=== PATIENT | female | born 1950 | race Caucasian/White ===

== ENCOUNTER → 2016-09-06 | Outpatient (CLI) | payer BC ==
[2016-09-06 11:23] LABS: INR 3.6 (<1.1); Prothrombin Time 34.7 sec (9.0-12.0)
== END | disposition home or self-care (01) ==
LOC: LABWHC1 10:36
PROVIDERS: ATTEND Family Medicine
DX: Z51.81 Encounter for therapeutic drug level monitoring (principal); Z79.01 Long term (current) use of anticoagulants
CPT/HCPCS: 36415; 85610

== ENCOUNTER → 2017-05-07 | Outpatient (CLI) | payer BC ==
[2017-05-07 14:20] LABS: INR 2.7 (<1.2); Prothrombin Time 25.6 sec (9.0-12.0)
== END | disposition home or self-care (01) ==
LOC: LABWHC1 13:36
PROVIDERS: ATTEND Family Medicine
DX: Z51.81 Encounter for therapeutic drug level monitoring (principal); Z79.01 Long term (current) use of anticoagulants
CPT/HCPCS: 36415; 85610

== ENCOUNTER → 2017-11-05 | Outpatient (CLI) | payer MEDICARE ==
--- NOTE | 2017-11-05 10:50 | US ---
EXAMINATION TYPE: US gallbladder DATE OF EXAM: 11/05/2017 COMPARISON: NONE CLINICAL HISTORY: 67-year-old female K80.20 Gallstones. Patient states history of gallstone. TECHNIQUE: Multiple sonographic images of the right upper quadrant are obtained. FINDINGS: Biochemistry Technologist notes: Limited visualization/exam due to patient body habitus EXAM MEASUREMENTS: Liver Length: 22.5 cm Gallbladder Wall: 0.3 cm CHD: 0.5 cm Right Kidney: 9.5 x 4.0 x 5.1 cm Pancreas: Obscured by bowel gas Liver: Enlarged. Echogenic and markedly attenuating. This secondarily limits assessment for focal le eduardo. Gallbladder: Large mobile, shadowing, 3.4 cm calculus. No abnormal gallbladder distention, wall thic kening, or pericholecystic fluid. Evidence for sonographic Perez's sign: neg CBD: Obscured by overlying bowel gas CHD: wnl Right Kidney: Limited visualization due to patient body habitus. No obvious hydronephrosis. IMPRESSION: 1. Hepatomegaly (22.5 cm) with marked hepatic steatosis. 2. A mobile 3.4 cm gallstone.
== END | disposition home or self-care (01) ==
LOC: RADUSWWP 09:40
PROVIDERS: ATTEND Surgery Plastic and Reconstructive Surgery
DX: K80.20 Calculus of gallbladder without cholecystitis without obstruction (principal); K57.30 Diverticulosis of large intestine without perforation or abscess without bleeding; K76.0 Fatty (change of) liver, not elsewhere classified; R16.0 Hepatomegaly, not elsewhere classified
CPT/HCPCS: 76705

== ENCOUNTER → 2017-11-07 | Outpatient (CLI) | payer MEDICARE ==
--- NOTE | 2017-11-07 16:51 | CT ---
EXAMINATION TYPE: CT abdomen pelvis w con DATE OF EXAM: 11/07/2017 COMPARISON: Ultrasound gallbladder 11/05/2017 HISTORY: Generalized pain CT DLP: 4651.7 mGycm Automated exposure control for dose reduction was used. TECHNIQUE: Helical acquisition of images from the lung bases through the pelvis have been completed. CONTRAST: Performed with Oral Contrast and with IV Contrast, patient injected with 100 mL of Isovue 300. FINDINGS: Exam is limited by patient body habitus. LUNG BASES: Calcified granuloma present at the posterior right lower lobe. There is calcified right h ilar node. AORTA: No significant abnormality is appreciated. LIVER/GB: Liver is enlarged and shows low attenuation compatible with hepatic steatosis. There is a l arge gallstone present within the gallbladder. PANCREAS: No significant abnormality is seen. SPLEEN: Scattered calcifications present within the spleen. ADRENALS: Right adrenal mass shows low attenuation and measures approximately 3 cm likely an adenoma. 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 FREE AIR: No Free Air visible. ASCITES: None visible. PELVIC ADENOPATHY: None visualized. RETROPERITONEAL ADENOPATHY: No Retroperitoneal Adenopathy visible. URINARY BLADDER: No significant abnormality is seen. OSSEOUS STRUCTURES: Degenerative disc disease is present especially in the lower lumbar spine, there may be a disc herniation present at L5-S1, lucency present along the spinal canal towards the right neural foramen IMPRESSION: HEPATIC STEATOSIS. CHOLELITHIASIS. OLD GRANULOMATOUS DISEASE. LIMITED EXAM. POSSIBLE DISC HERNIATION LUMBOSACRAL SPINE. PROBABLE RIGHT ADRENAL ADENOMA. ADDITIONAL FINDINGS ABOVE.
== END ==
LOC: RADCTMAIN 14:38
PROVIDERS: ATTEND Surgery Plastic and Reconstructive Surgery
DX: K80.20 Calculus of gallbladder without cholecystitis without obstruction (principal); R16.0 Hepatomegaly, not elsewhere classified; D73.89 Other diseases of spleen; E27.9 Disorder of adrenal gland, unspecified; K76.0 Fatty (change of) liver, not elsewhere classified
CPT/HCPCS: 74177; 36415; Q9967

== ENCOUNTER 2017-11-24 06:48 | Day surgery (SDC) | payer MEDICARE ==
[2017-11-20 10:51] VITALS: BMI 68.6
--- NOTE | 2017-11-23 11:49 | P.GSHP ---
History of Present Illness H&P Date: 11/24/17 CHIEF COMPLAINT: GERD and colon screen HISTORY OF PRESENT ILLNESS: The patient is a 67-year-old female who presents with gastroesophageal reflux disease and need for colon screen. Upper and lower endoscopy were offered for further evaluation and management. PAST MEDICAL HISTORY: Please see list. PAST SURGICAL HISTORY: Please see list. MEDICATIONS: Please see list. ALLERGIES: Please see list. SOCIAL HISTORY: No illicit drug use FAMILY HISTORY: No reports of Crohn disease or ulcerative colitis. REVIEW OF ORGAN SYSTEMS: CONSTITUTIONAL: No reports of fevers or chills. GI: Denies any blood in stools or constipation. PHYSICAL EXAM: VITAL SIGNS: Stable GENERAL: Well-developed pleasant in no acute distress. HEENT: No scleral icterus. Extraocular movements grossly intact. Moist buccal mucosa. NECK: Supple without lymphadenopathy. CHEST: Unlabored respirations. Equal bilateral excursions. CARDIOVASCULAR: Regular rate and rhythm. Distal 2+ pulses. ABDOMEN: Soft, nondistended. MUSCULOSKELETAL: No clubbing, cyanosis, or edema. ASSESSMENT: 1. Gastroesophageal reflux disease 2. Colon screen. PLAN: 1. Recommend proceeding with an upper and lower endoscopy Past Medical History Past Medical History: Blood Disorder, Hypertension, Osteoarthritis (OA), Pulmonary Embolus (PE), Thyroid Disorder Additional Past Medical History / Comment(s): FACTOR II MUTATION History of Any Multi-Drug Resistant Organisms: None Reported Past Surgical History: Adenoidectomy, Heart Catheterization, Orthopedic Surgery , Tonsillectomy, Uterine Ablation Additional Past Surgical History / Comment(s): D & C. LT ARM SX X 2. COLONOSCOPY, EGD Past Anesthesia/Blood Transfusion Reactions: No Reported Reaction Smoking Status: Never smoker - Past Family History Mother Family Medical History: Cancer Sister(s) Family Medical History: Cancer Daughter(s) Family Medical History: Blood Disorder, Pulmonary Embolus Additional Family Medical History / Comment(s): FACTOR II MUTATION Medications and Allergies Home Medications Medication Instructions Recorded Confirmed Type Carvedilol [Coreg] 12.5 mg PO BID 11/20/17 11/20/17 History Citalopram Hydrobromide 20 mg PO HS 11/20/17 11/20/17 History [Citalopram HBr] Ergocalciferol (Vitamin D2) 1 each PO TH 11/20/17 11/20/17 History [Vitamin D2] Levothyroxine Sodium [Synthroid] 50 mcg PO DAILY 11/20/17 11/20/17 History Lisinopril [Zestril] 10 mg PO HS 11/20/17 11/20/17 History Warfarin [Coumadin] 7.5 mg PO Q2D 11/20/17 11/20/17 History Warfarin [Coumadin] 10 mg PO Q2D 11/20/17 11/20/17 History buPROPion HCL [buPROPion HCL SR] 150 mg PO Q2D 11/20/17 11/20/17 History Allergies Allergy/AdvReac Type Severity Reaction Status Date / Time latex Allergy Itching Verified 11/20/17 10:36 Sulfa (Sulfonamide Allergy Rash/Hives Verified 11/20/17 10:36 Antibiotics)
[~2017-11-24 06:48] MED LIST: LACTATED RINGERS 1,000 ML IV SCH; LIDOCAINE 1% 20 ML VIAL (10MG/ML) FOR IV START INTRADERMA PRN; MIDAZOLAM 2 MG/2 ML VIAL IV PRN
[2017-11-24] MEDS ORDERED: LACTATED RINGERS 1,000 ML IV ONE (07:10)
[2017-11-24] MEDS ORDERED: LIDOCAINE 1% INJ 10MG/ML (20 ML MDV) ONE (07:32)
[2017-11-24] MEDS ORDERED: PROPOFOL 10 MG/ML 20 ML VIAL IV ONE (07:32)
--- NOTE | 2017-11-24 07:56 | P.PCN ---
Date of Procedure: 11/24/17 Description of Procedure: PREOPERATIVE DIAGNOSIS: Gastroesophageal reflux disease. Morbid obesity. POSTOPERATIVE DIAGNOSIS: Morbid obesity. Gastritis. Gastroesophageal reflux disease. Diaphragmatic hiatal hernia without obstruction. OPERATION: Esophagogastroduodenoscopy with biopsies along antrum. SURGEON: Dionne Cool MD ANESTHESIA: MAC. INDICATIONS: The patient is a 67-year-old female who presents with a history of reflux disease. Benefits and risks of the procedure were described. Informed consent was obtained. DESCRIPTION: The patient was brought into the endoscopy suite and laid in the left lateral decubitus position. An Olympus gastroscope was passed along the posterior oropharynx down to the distal esophagus where the squamocolumnar junction was encountered at 42 cm from the incisors. The stomach was entered and no bile reflux was found. Additional findings are listed below. Biopsies with cold forceps were obtained of the antrum. The first through third portion of the duodenum was examined and unremarkable. Retroflexion of the scope confirmed Hill grade 3 lower esophageal valve. The squamocolumnar junction demostrated LA grade A erosive esophagitis. The stomach was desufflated. The patient tolerated the procedure well. FINDINGS: Squamocolumnar junction 41 cm from the incisors. Diaphragmatic hiatus at 42 cm. Hiatal hernia 1 cm. Hill grade 4 lower esophageal valve. LA grade A erosive esophagitis. No active duodenitis. Chronic gastritis, superficial RECOMMENDATIONS: Further recommendations pending results of pathology report. Upper endoscopy as needed.
--- NOTE | 2017-11-24 07:57 | P.PCN ---
Date of Procedure: 11/24/17 Description of Procedure: PREOPERATIVE DIAGNOSIS: Colonoscopy screening. POSTOPERATIVE DIAGNOSIS: Colonoscopy screening. Diverticulosis, scattered. OPERATION: Colonoscopy to the ileocecal valve and appendiceal orifice. SURGEON: Dionne Cool MD. ANESTHESIA: MAC. INDICATIONS: The patient is a 67-year-old female who presents for colonoscopy screening. Benefits and risks were described and informed consent was obtained. DESCRIPTION OF PROCEDURE: The patient had undergone Gatorade, MiraLAX and Dulcolax prep. She had been brought into the operating room and laid in the left lateral decubitus position. After adequate intravenous sedation, the rectum was examined with 2% lidocaine jelly. No external hemorrhoids were encountered. The rectal tone was within normal limits. No lesions were palpated in the rectal vault. An Olympus colonoscope was advanced until the ileocecal valve and appendiceal orifice were clearly viewed. The prep was excellent with clear visualization of the mucosal folds. The scope was removed with visualization of each mucosal fold. Scattered diverticulosis was encountered. No colonic polyps were found. No evidence of focal colitis was found. No internal hemorrhoids were found. The colon was desufflated. The patient had tolerated the procedure well. Withdrawal time was over 6 minutes. FINDINGS: No external prolapsed hemorrhoids. No arteriovenous malformations. No adenomatous polyps. No focal colitis. Scattered diverticulosis. RECOMMENDATIONS: Lower endoscopy in 10 years per screening guidelines, 2027 Plan - Discharge Summary New Discharge Prescriptions: No Action Warfarin [Coumadin] 10 mg PO Q2D Warfarin [Coumadin] 7.5 mg PO Q2D Lisinopril [Zestril] 10 mg PO HS Levothyroxine Sodium [Synthroid] 50 mcg PO DAILY buPROPion HCL [buPROPion HCL SR] 150 mg PO Q2D Ergocalciferol (Vitamin D2) [Vitamin D2] 1 each PO TH Citalopram Hydrobromide [Citalopram HBr] 20 mg PO HS Carvedilol [Coreg] 12.5 mg PO BID Discharge Medication List Carvedilol [Coreg] 12.5 mg PO BID 11/20/17 [History] Citalopram Hydrobromide [Citalopram HBr] 20 mg PO HS 11/20/17 [History] Ergocalciferol (Vitamin D2) [Vitamin D2] 1 each PO TH 11/20/17 [History] Levothyroxine Sodium [Synthroid] 50 mcg PO DAILY 11/20/17 [History] Lisinopril [Zestril] 10 mg PO HS 11/20/17 [History] Warfarin [Coumadin] 7.5 mg PO Q2D 11/20/17 [History] Warfarin [Coumadin] 10 mg PO Q2D 11/20/17 [History] buPROPion HCL [buPROPion HCL SR] 150 mg PO Q2D 11/20/17 [History]
[2017-11-24 08:00] VITALS: RESP 16
[2017-11-24 08:40] VITALS: BP 111/70; PULSE 63
== END 2017-11-24 08:54 | disposition home or self-care (01) ==
LOC: ORWHC2ENDO 06:48
PROVIDERS: ATTEND Surgery Plastic and Reconstructive Surgery
DX: Z12.11 Encounter for screening for malignant neoplasm of colon (principal); K29.50 Unspecified chronic gastritis without bleeding; K22.10 Ulcer of esophagus without bleeding; K44.9 Diaphragmatic hernia without obstruction or gangrene; K57.30 Diverticulosis of large intestine without perforation or abscess without bleeding; I10 Essential (primary) hypertension; E07.9 Disorder of thyroid, unspecified; M19.90 Unspecified osteoarthritis, unspecified site; D68.2 Hereditary deficiency of other clotting factors; Z86.718 Personal history of other venous thrombosis and embolism; Z86.711 Personal history of pulmonary embolism; Z79.01 Long term (current) use of anticoagulants; Z79.890 Hormone replacement therapy; Z79.899 Other long term (current) drug therapy
CPT/HCPCS: 88305; 43239; J2001; J2704; G0121

== ENCOUNTER → 2017-12-10 | Outpatient (CLI) | payer MEDICARE ==
[2017-12-10 14:21] VITALS: BP 144/75; PULSE 74; RESP 16; TEMP 97.8; BMI 67.1
--- NOTE | 2017-12-10 14:27 | P.HPBAR ---
Bariatric H&P - History & Physicial H&P Date: 12/10/17 History & Physicial: Visit/CC: Patient initial contact: Initial weight: Initial weight in pounds: Height: She Initial BMI: Last weight: Current weight: Current weight in pounds: Current BMI: Jerome body weight (based on NIH guidelines): Excess body weight loss: The patient is a 67 year-old F who presents for Bariatric Assessment. DATE OF SERVICE: 12/10/2017 REASON FOR CONSULTATION: Initial bariatric evaluation. HISTORY OF PRESENT ILLNESS: Chelsi Bhatia is a 67-year-old female who comes in with long-standing morbid obesity. She reports developing high blood pressure as a result of her obesity. She presents for looking a bariatric procedure. No family history of stomach or esophageal cancer. She has a family history of blood clotting disorder. She denies lupus or multiple sclerosis in her family or herself. No reports of Crohn's disease or ulcer colitis. She has a strong family history of obesity. She has family history of diabetics. She reports lower back pain including hip pain and knee pain. She has active gallbladder disease. Now she presents for her initial assessment. At height of 5 feet 4 inches, her ideal body weight is 144 pounds. She comes in 390 pounds. Body mass index is 67.1. She is 246 pounds overweight. PAST MEDICAL HISTORY: 1. Morbid obesity due to excess calories 2. Body mass index of 67.1 3. Osteoarthritis of the knees. 4. Osteoarthritis of the hips. 5. Osteoarthritis of the lower back. 6. Depressive disorder 7. Hypertensive heart disease. 8. Hypothyroidism 9. Atrial fibrillation PAST SURGICAL HISTORY: 1. Upper endoscopy. HOME MEDICATIONS: 1. Coumadin 2. Zestril 3. Coreg 4. Wellbutrin 5. Citalopram 6. Vitamin D 7. Synthroid ALLERGIES: 1. Latex 2. Sulfa SOCIAL HISTORY: No active tobacco use. History of alcohol use. FAMILY HISTORY: No family history of ulcerative colitis disease or Crohn's disease. Family history of morbid obesity. No lupus in the family. No reports of stomach or esophageal cancer. Family history of diabetes type 2. REVIEW OF ORGAN SYSTEMS: CONSTITUTIONAL: At height of 5 feet 4 inches, her ideal body weight is 144 pounds. She comes in 390 pounds. Body mass index is 67.1. She is 246 pounds overweight. HEENT: Denies any active troubles with vision or hearing. No troubles with swallowing. ENDOCRINE: No diabetes. Has hypothyroidism. CARDIOVASCULAR: No reports of palpitations or heart attacks or chest pain. Has hypertension. RESPIRATORY: Has daytime somnolence. No asthma. GI: Denies any bright red blood per rectum. No diarrhea or constipation. MUSCULOSKELETAL: Has lower back pain and joint pain. Has osteoarthritis of the knees. NEURO: No headaches. No seizure disorders. PSYCH: Has depression. No suicidal ideation. RHEUMATOLOGIC: No lupus. No rheumatoid arthritis. HEMATOLOGIC: Denies any abnormal bleeding or bruising. No personal history of DVTs. On blood thinner. SKIN: No rash. No skin cancer. PHYSICAL EXAM: VITAL SIGNS: Height 5 foot 4 inches, weight 390 pounds. BMI 67.1 Vital Signs Temp 97.8 F 12/10/17 14:17 Pulse 74 12/10/17 14:17 Resp 16 12/10/17 14:17 BP 144/75 12/10/17 14:17 Pulse Ox GENERAL: Well-developed in no acute distress. HEENT: No scleral icterus. Extraocular movements grossly intact. Hears conversational speech. No nasal drainage. NECK: Supple without lymphadenopathy. CHEST: Nonlabored respirations with equal bilateral excursions. CARDIOVASCULAR: Regular rate and regular rhythm. Distal 2+ pulses. ABDOMEN: Obese, soft, nontender, nondistended. MUSCULOSKELETAL: No clubbing, cyanosis. Gross strength 5/5 distal lower extremities. 1+ pre-tibial pitting edema. NEURO: No focal or lateralizing signs. Cranial nerves 2 through 12 grossly within normal limits. PSYCH: Appropriate affect. Alert and oriented to person, place and time. SKIN: Good skin turgor. Well perfused. EGD REPORT: Squamocolumnar junction 41 cm from the incisors. Diaphragmatic hiatus at 42 cm. Hiatal hernia 1 cm. Hill grade 4 lower esophageal valve. LA grade A erosive esophagitis. No active duodenitis. Chronic gastritis, superficial Final Pathologic Diagnosis GASTRIC ANTRUM, BIOPSY: Mild chronic gastritis. Helicobacter organisms are not identified on routine H+E stained sections. STUDIES: Ultrasound of the gallbladder demonstrates fatty liver disease and gallstones ASSESSMENT: 1. Morbid obesity due to excess calories 2. Body mass index of 67.1 3. Osteoarthritis of the knees. 4. Osteoarthritis of the hips. 5. Osteoarthritis of the lower back. 6. Depressive disorder 7. Hypertensive heart disease. 8. Hypothyroidism 9. Atrial fibrillation 10. Chronic anticoagulation 11. Hiatal hernia 12. Gallstones 13. Fatty liver disease PLAN: 1. Surgical options including a band, gastric bypass, sleeve gastrectomy were described in detail. Alternatives such as gastric balloon including duodenal switch were described. She is looking into a sleeve gastrectomy. 2. The [place] [facility]ariat[facility] surgical collaborative data and outcomes calculator were described with surgical options. 3. Recommend a bariatric metabolic panel to evaluate for micro- including macronutrient deficiencies. 4. For history of daytime somnolence, recommend evaluation and treatment for sleep apnea. 5. Dietary surveillance and counseling was reviewed, I have asked increased protein intake to at least 80 grams daily. 6. Will need cardiac risk assessment. 7. Recommend medical risk assessment. 8. Psych assessment per insurance guidelines. 9. Recommend 12-lead EKG with family history of hypertensive heart disease. 10. She needs 4 week weight loss for very large liver 11. She has very large gallstones and needs removal. 12. Colonoscopy with repeat in 5 years, 2022 13. She has asymptomatic hiatal hernia. 14. She is looking into the sleeve. 15. Labs reviewed in detail. Thank you for this consultation. Bariatric Checklist Checklist: Plan: Checklist: EGD: 1. Hiatal hernia: 2. H. Pylori: HgbA1c: Vitamin D: Smoking: Primary care physician referral: Psychiatry clearance: Cardiology clearance: Sleep study: Diet journal: VTE risk score: VTE risk level: Rehab needs at discharge:
== END | disposition home or self-care (01) ==
LOC: BARWHC3 14:00
PROVIDERS: ATTEND Surgery Plastic and Reconstructive Surgery
DX: E66.01 Morbid (severe) obesity due to excess calories (principal); M17.0 Bilateral primary osteoarthritis of knee; M16.0 Bilateral primary osteoarthritis of hip; F32.9 Major depressive disorder, single episode, unspecified; I11.9 Hypertensive heart disease without heart failure; E03.9 Hypothyroidism, unspecified; I48.91 Unspecified atrial fibrillation; K44.9 Diaphragmatic hernia without obstruction or gangrene; K76.9 Liver disease, unspecified; K80.80 Other cholelithiasis without obstruction; Z79.01 Long term (current) use of anticoagulants; Z68.44 Body mass index [BMI] 60.0-69.9, adult; Z88.2 Allergy status to sulfonamides; Z91.040 Latex allergy status; Z79.899 Other long term (current) drug therapy
CPT/HCPCS: 99211

== ENCOUNTER → 2017-12-29 | Outpatient (CLI) | payer MEDICARE ==
[2017-12-29 16:20] VITALS: BMI 67.9
== END | disposition home or self-care (01) ==
LOC: BARWHC3 08:31
PROVIDERS: ATTEND Surgery Plastic and Reconstructive Surgery
DX: E66.01 Morbid (severe) obesity due to excess calories (principal); Z68.44 Body mass index [BMI] 60.0-69.9, adult
CPT/HCPCS: 97804

== ENCOUNTER → 2018-03-04 | Outpatient (CLI) | payer MEDICARE ==
[2018-03-04 14:55] VITALS: BP 127/72; PULSE 82; TEMP 98; BMI 63.8
--- NOTE | 2018-03-04 15:27 | P.PN ---
Subjective Progress Note Date: 03/04/18 DATE OF SERVICE: 03/04/2018 CHIEF COMPLAINT: Bariatric evaluation. HISTORY OF PRESENT ILLNESS: Chelsi Bhatia is a 67-year-old female who comes in with long-standing morbid obesity. She has completed her blood work and stopped her coumadin. She comes in with hypertensive heart disease as well as atrial fibrillation. She has history of anticoagulant disorder. At height of 5 feet 4 inches, her ideal body weight is 144 pounds. She comes in 390 pounds. Body mass index is 67.1. Today she comes in 371 pounds. She has lost 19 pounds in 3 months. She is 227 pounds overweight. PAST MEDICAL HISTORY: 1. Morbid obesity due to excess calories 2. Body mass index of 67.1, initial 3. Osteoarthritis of the knees. 4. Osteoarthritis of the hips. 5. Osteoarthritis of the lower back. 6. Depressive disorder 7. Hypertensive heart disease. 8. Hypothyroidism 9. Atrial fibrillation PAST SURGICAL HISTORY: 1. Upper endoscopy. HOME MEDICATIONS: 1. Coumadin 2. Zestril 3. Coreg 4. Wellbutrin 5. Citalopram 6. Vitamin D 7. Synthroid ALLERGIES: 1. Latex 2. Sulfa SOCIAL HISTORY: No active tobacco use. History of alcohol use. FAMILY HISTORY: No family history of ulcerative colitis disease or Crohn's disease. Family history of morbid obesity. No lupus in the family. No reports of stomach or esophageal cancer. Family history of diabetes type 2. REVIEW OF ORGAN SYSTEMS: CONSTITUTIONAL: At height of 5 feet 4 inches, her ideal body weight is 144 pounds. She comes in 390 pounds. Body mass index is 67.1. Today she comes in 371 pounds. She has lost 19 pounds in 3 months. She is 227 pounds overweight. HEENT: Denies any active troubles with vision or hearing. No troubles with swallowing. ENDOCRINE: No diabetes. Has hypothyroidism. CARDIOVASCULAR: No reports of palpitations or heart attacks or chest pain. Has hypertension. RESPIRATORY: Has daytime somnolence. No asthma. GI: Denies any bright red blood per rectum. No diarrhea or constipation. MUSCULOSKELETAL: Has lower back pain and joint pain. Has osteoarthritis of the knees. NEURO: No headaches. No seizure disorders. PSYCH: Has depression. No suicidal ideation. RHEUMATOLOGIC: No lupus. No rheumatoid arthritis. HEMATOLOGIC: Denies any abnormal bleeding or bruising. She has anticoagulant disorder. On blood thinner. SKIN: No rash. No skin cancer. PHYSICAL EXAM: VITAL SIGNS: Height 5 foot 4 inches, weight 371 pounds. BMI 63.9 Vital Signs Temp 98 F 03/04/18 14:52 Pulse 82 03/04/18 14:52 Resp BP 127/72 03/04/18 14:52 Pulse Ox GENERAL: Well-developed in no acute distress. HEENT: No scleral icterus. Extraocular movements grossly intact. Hears conversational speech. No nasal drainage. NECK: Supple without lymphadenopathy. CHEST: Nonlabored respirations with equal bilateral excursions. CARDIOVASCULAR: Regular rate and regular rhythm. Distal 2+ pulses. ABDOMEN: Obese, soft, nontender, nondistended. MUSCULOSKELETAL: No clubbing, cyanosis. Gross strength 5/5 distal lower extremities. 1+ pre-tibial pitting edema. NEURO: No focal or lateralizing signs. Cranial nerves 2 through 12 grossly within normal limits. PSYCH: Appropriate affect. Alert and oriented to person, place and time. SKIN: Good skin turgor. Well perfused. STUDIES: Ultrasound of the gallbladder demonstrates fatty liver disease and gallstones ASSESSMENT: 1. Morbid obesity due to excess calories 2. Body mass index of 67.1 to 63.9 3. Osteoarthritis of the knees. 4. Osteoarthritis of the hips. 5. Osteoarthritis of the lower back. 6. Depressive disorder 7. Hypertensive heart disease. 8. Hypothyroidism 9. Atrial fibrillation 10. Chronic anticoagulation 11. Hiatal hernia 12. Gallstones 13. Fatty liver disease PLAN: 1. Consent for sleeve and gallbladder reviewed. 2. Lovenox post op for thromboembolic disorder 3. Bariatric options between a sleeve, band and a Oralia-en-Y gastric bypass were reviewed in detail. Robotic assisted approach described. 4. The [place] [facility] Data was also reviewed with benefits and risks as described. 5. An 8 page second-generation bariatric consent form was reviewed in detail including potential of bleeding, infection, leaks, adequate weight loss, nutritional deficiencies which he demonstrated understanding of the risks. 6. A 2 week high-protein low caloric 800 kcal diet described to address hepatomegaly. 7. Preoperative labs including complete metabolic panel and CBC with type and screen recommended. 8. DVT prophylaxis per [place] [facility]ariat[facility] collaborative. 9. Antibiotic prophylaxis. 10. Inpatient hospitalization anticipated for more than 2 nights. 11. All questions and concerns were addressed with the patient. Objective - Vital Signs Vital signs: Vital Signs Temp 98 F 03/04/18 14:52 Pulse 82 03/04/18 14:52 Resp BP 127/72 03/04/18 14:52 Pulse Ox Intake & Output 03/03/18 03/04/18 03/04/18 18:59 06:59 18:59 Weight 168.736 kg
== END | disposition home or self-care (01) ==
LOC: BARWHC3 13:54
PROVIDERS: ATTEND Surgery Plastic and Reconstructive Surgery
DX: E66.01 Morbid (severe) obesity due to excess calories (principal); M17.0 Bilateral primary osteoarthritis of knee; M16.0 Bilateral primary osteoarthritis of hip; F32.9 Major depressive disorder, single episode, unspecified; I11.9 Hypertensive heart disease without heart failure; E03.9 Hypothyroidism, unspecified; I48.91 Unspecified atrial fibrillation; K44.9 Diaphragmatic hernia without obstruction or gangrene; K80.20 Calculus of gallbladder without cholecystitis without obstruction; K76.0 Fatty (change of) liver, not elsewhere classified; M47.816 Spondylosis without myelopathy or radiculopathy, lumbar region; Z68.44 Body mass index [BMI] 60.0-69.9, adult; Z91.040 Latex allergy status; Z88.2 Allergy status to sulfonamides; Z79.01 Long term (current) use of anticoagulants; Z79.02 Long term (current) use of antithrombotics/antiplatelets; Z79.899 Other long term (current) drug therapy
CPT/HCPCS: 99211

== ENCOUNTER → 2018-03-04 | Outpatient (CLI) | payer MEDICARE | END | disposition home or self-care (01) | LOC: LABPAT 15:34 | PROVIDERS: ATTEND Surgery Plastic and Reconstructive Surgery | DX: Z01.812 Encounter for preprocedural laboratory examination (principal) | CPT/HCPCS: 36415; 86850; 86900; 86901 ==

== ENCOUNTER 2018-03-09 07:30 | Inpatient (IN) | payer MEDICARE ==
--- NOTE | 2018-03-08 17:35 | P.GSHP ---
History of Present Illness H&P Date: 03/09/18 DATE OF SERVICE: 03/09/2018 CHIEF COMPLAINT: Morbid obesity HISTORY OF PRESENT ILLNESS: Chelsi Bhatia is a 67-year-old female who comes in with long-standing morbid obesity. She reports developing high blood pressure as a result of her obesity. She presents for looking a bariatric procedure. No family history of stomach or esophageal cancer. She has a family history of blood clotting disorder. She denies lupus or multiple sclerosis in her family or herself. No reports of Crohn's disease or ulcer colitis. She has a strong family history of obesity. She has family history of diabetics. She reports lower back pain including hip pain and knee pain. She has active gallbladder disease. She has completed full bariatric assessment and has elected for sleeve gastrectomy. At height of 5 feet 4 inches, her ideal body weight is 144 pounds. She was 390 pounds down to 379 pounds. Body mass index is 67.1 down to 64.0. She also comes in with symptomatic gallstones. PAST MEDICAL HISTORY: 1. Morbid obesity due to excess calories 2. Body mass index of 67.1 3. Osteoarthritis of the knees. 4. Osteoarthritis of the hips. 5. Osteoarthritis of the lower back. 6. Depressive disorder 7. Hypertensive heart disease. 8. Hypothyroidism 9. Atrial fibrillation PAST SURGICAL HISTORY: 1. Upper endoscopy. HOME MEDICATIONS: 1. Coumadin 2. Zestril 3. Coreg 4. Wellbutrin 5. Citalopram 6. Vitamin D 7. Synthroid ALLERGIES: 1. Latex 2. Sulfa SOCIAL HISTORY: No active tobacco use. History of alcohol use. FAMILY HISTORY: No family history of ulcerative colitis disease or Crohn's disease. Family history of morbid obesity. No lupus in the family. No reports of stomach or esophageal cancer. Family history of diabetes type 2. REVIEW OF ORGAN SYSTEMS: CONSTITUTIONAL: At height of 5 feet 4 inches, her ideal body weight is 144 pounds. Previous weight of 390 pounds. Body mass index is 67.1. She is 246 pounds overweight. HEENT: Denies any active troubles with vision or hearing. No troubles with swallowing. ENDOCRINE: No diabetes. Has hypothyroidism. CARDIOVASCULAR: No reports of palpitations or heart attacks or chest pain. Has hypertension. RESPIRATORY: Has daytime somnolence. No asthma. GI: Denies any bright red blood per rectum. No diarrhea or constipation. MUSCULOSKELETAL: Has lower back pain and joint pain. Has osteoarthritis of the knees. NEURO: No headaches. No seizure disorders. PSYCH: Has depression. No suicidal ideation. RHEUMATOLOGIC: No lupus. No rheumatoid arthritis. HEMATOLOGIC: Denies any abnormal bleeding or bruising. No personal history of DVTs. On blood thinner. SKIN: No rash. No skin cancer. PHYSICAL EXAM: VITAL SIGNS: Height 5 foot 4 inches, weight 390 down to 379 pounds. BMI 64.0 GENERAL: Well-developed in no acute distress. HEENT: No scleral icterus. Extraocular movements grossly intact. Hears conversational speech. No nasal drainage. NECK: Supple without lymphadenopathy. CHEST: Nonlabored respirations with equal bilateral excursions. CARDIOVASCULAR: Regular rate and regular rhythm. Distal 2+ pulses. ABDOMEN: Obese, soft, nontender, nondistended. MUSCULOSKELETAL: No clubbing, cyanosis. Gross strength 5/5 distal lower extremities. 1+ pre-tibial pitting edema. NEURO: No focal or lateralizing signs. Cranial nerves 2 through 12 grossly within normal limits. PSYCH: Appropriate affect. Alert and oriented to person, place and time. SKIN: Good skin turgor. Well perfused. EGD REPORT: Squamocolumnar junction 41 cm from the incisors. Diaphragmatic hiatus at 42 cm. Hiatal hernia 1 cm. Hill grade 4 lower esophageal valve. LA grade A erosive esophagitis. No active duodenitis. Chronic gastritis, superficial Final Pathologic Diagnosis GASTRIC ANTRUM, BIOPSY: Mild chronic gastritis. Helicobacter organisms are not identified on routine H+E stained sections. STUDIES: Ultrasound of the gallbladder demonstrates fatty liver disease and gallstones ASSESSMENT: 1. Morbid obesity due to excess calories 2. Body mass index of 67.1 to 64.0 3. Osteoarthritis of the knees. 4. Osteoarthritis of the hips. 5. Osteoarthritis of the lower back. 6. Depressive disorder 7. Hypertensive heart disease. 8. Hypothyroidism 9. Atrial fibrillation 10. Chronic anticoagulation 11. Hiatal hernia 12. Gallstones 13. Fatty liver disease PLAN: 1. Surgical options including a band, gastric bypass, sleeve gastrectomy were described in detail. Alternatives such as gastric balloon including duodenal switch were described. She is looking into a sleeve gastrectomy. 2. The [place] bariatric surgical collaborative data and outcomes calculator were described with surgical options. 3. Robotic-assisted approach described for sleeve gastrectomy and cholecystectomy 4. Inpatient hospitalization more than 2 nights 5. DVT prophylaxis. Will need Lovenox on discharge for chronic Coumadin use. 6. Antibiotic prophylaxis 7. Will need repeat PT/INR on morning of surgery including CBC and comprehensive metabolic panel Past Medical History Past Medical History: Blood Disorder, Hypertension, Liver Disease, Osteoarthritis (OA), Pulmonary Embolus (PE), Sleep Apnea/CPAP/BIPAP Additional Past Medical History / Comment(s): Has Factor 2 disorder; Had PE 2013; uses CPAP; "enlarged liver" History of Any Multi-Drug Resistant Organisms: None Reported Past Surgical History: Orthopedic Surgery, Tonsillectomy, Uterine Ablation Additional Past Surgical History / Comment(s): 2 L Arm surgeries; Lasix both eyes; Colonoscopy; LEEP Past Anesthesia/Blood Transfusion Reactions: No Reported Reaction Smoking Status: Never smoker - Past Family History Mother Family Medical History: Cancer Additional Family Medical History / Comment(s): Colon CA Sister(s) Family Medical History: Cancer Additional Family Medical History / Comment(s): LUNG CA Daughter(s) Family Medical History: Blood Disorder Additional Family Medical History / Comment(s): FACTOR 2 Medications and Allergies Home Medications Medication Instructions Recorded Confirmed Type Carvedilol [Coreg] 12.5 mg PO BID 11/20/17 03/05/18 History Citalopram Hydrobromide 20 mg PO HS 11/20/17 03/05/18 History [Citalopram HBr] Ergocalciferol (Vitamin D2) 1 each PO TH 11/20/17 03/05/18 History [Vitamin D2] Lisinopril [Zestril] 10 mg PO HS 11/20/17 03/05/18 History Warfarin [Coumadin] 7.5 mg PO Q2D 11/20/17 03/05/18 History Warfarin [Coumadin] 10 mg PO Q2D 11/20/17 03/05/18 History buPROPion HCL [buPROPion HCL SR] 150 mg PO Q2D 11/20/17 03/05/18 History Allergies Allergy/AdvReac Type Severity Reaction Status Date / Time latex Allergy Itching Verified 02/27/18 12:00 Sulfa (Sulfonamide Allergy Rash/Hives Verified 02/27/18 12:00 Antibiotics)
[~2018-03-09 07:30] MED LIST changes: +CHLORHEXIDINE GLUCONATE 15 ML CUP MUCOUS MEM ONE; +DEXAMETHASONE SOD PHOSPHATE 10 MG/ML 1 ML VIAL IV ONE; +ENOXAPARIN 40 MG/0.4 ML SYRINGE SQ STA; +HYDROmorphone 0.5 MG/0.5 ML SYRINGE IVP PRN; -LIDOCAINE 1% 20 ML VIAL (10MG/ML) FOR IV START INTRADERMA PRN; -MIDAZOLAM 2 MG/2 ML VIAL IV PRN; +ONDANSETRON 4 MG/2 ML VIAL IVP ONE; +PANTOPRAZOLE 40 MG/10 ML VIAL IV STA
[2018-03-09] MEDS ORDERED: LIDOCAINE 1% 20 ML VIAL (10MG/ML) FOR IV START INTRADERMA ONE (09:04)
[2018-03-09 09:05] LABS: Basophils # (A) 0.1 k/uL (0-0.2); Basophils % (A) 1 %; Eosinophils # (A) 0.3 k/uL (0-0.7); Eosinophils % (A) 3 %; HCT 45.4 % (34.0-46.0); HGB 14.5 gm/dL (11.4-16.0); Lymphocytes # (A) 2.5 k/uL (1.0-4.8); Lymphocytes % (A) 30 %; MCV 84.2 fL (80.0-100.0); Mean Platelet Volume 7.8; Monocytes # (A) 0.6 k/uL (0-1.0); Monocytes % (A) 7 %; Neutrophils # (A) 4.6 k/uL (1.3-7.7); Neutrophils % (A) 56 %; Platelet Count 237 k/uL (150-450); RBC 5.39 m/uL (3.80-5.40); RDW 14.1 % (11.5-15.5); WBC 8.2 k/uL (3.8-10.6)
[2018-03-09 09:10] LABS: INR 1.2 (<1.2); Prothrombin Time 11.9 sec (9.0-12.0)
[2018-03-09 09:18] LABS: Albumin 4.3 g/dL (3.5-5.0); Calcium 10.1 mg/dL (8.4-10.2); Potassium 4.3 mmol/L (3.5-5.1); Total Bilirubin 0.7 mg/dL (0.2-1.3); Total Protein 7.5 g/dL (6.3-8.2)
[2018-03-09] MEDS ORDERED: BUPIVACAIN-EPI 0.25%-1:200,000 30 ML VIAL SQ ONE ×2 (10:08→10:40)
[2018-03-09] MEDS ORDERED: HYDROmorphone (PF) 1 MG/ML ONE (10:10)
[2018-03-09] MEDS ORDERED: GLYCOPYRROLATE 0.2 MG/ML 2 ML VIAL ONE (10:10)
[2018-03-09] MEDS ORDERED: LIDOCAINE 1% INJ 10MG/ML (20 ML MDV) ONE (10:10)
[2018-03-09] MEDS ORDERED: SUCCINYLCHOLINE CHLORIDE 100 MG/5 ML SYR IV ONE (10:10)
[2018-03-09] MEDS ORDERED: fentaNYL (PF) 50 MCG/ML 2 ML AMP ONE (10:10)
[2018-03-09] MEDS ORDERED: NEOSTIGMINE 1 MG/ML 10 ML VIAL ONE (10:10)
[2018-03-09] MEDS ORDERED: ePHEDrine SULFATE/0.9% NACL/PF 50 MG/5 ML SYRINGE IV ONE (10:10)
[2018-03-09] MEDS ORDERED: KETOROLAC 30 MG/ML 1 ML VIAL ONE (10:10)
[2018-03-09] MEDS ORDERED: ROCURONIUM BROMIDE 10 MG/ML 10 ML VIAL IV ONE (10:10)
[2018-03-09] MEDS ORDERED: MIDAZOLAM 2 MG/2 ML VIAL ONE (10:10)
[2018-03-09] MEDS ORDERED: INDOCYANINE GREEN 25 MG VIAL IV ONE (10:10)
[2018-03-09] MEDS ORDERED: PROPOFOL 10 MG/ML 20 ML VIAL IV ONE (10:10)
[2018-03-09] MEDS ORDERED: INDOCYANINE GREEN 25 MG VIAL IV STA (10:21)
[2018-03-09] MEDS ORDERED: LACTATED RINGERS 1,000 ML IV ONE (11:26)
[2018-03-09] MEDS ORDERED: NALOXONE 0.4 MG/ML 1 ML VIAL IV PRN (13:24)
[2018-03-09] MEDS ORDERED: diphenhydrAMINE 50 MG/ML 1 ML VIAL IVP PRN (13:24)
[2018-03-09] MEDS ORDERED: HYDROmorphone 1 MG/ML 1 ML SYRINGE IVP PRN (13:24)
[2018-03-09] MEDS ORDERED: ACETAMINOPHEN IV (For NPO) 1,000 MG in EMPTY BAG 1 BAG IVPB ONE (13:45)
--- NOTE | 2018-03-09 15:01 | P.OP ---
Date of Procedure: 03/09/18 Description of Procedure: SURGEON: SOBIA FOOTE MD COMPANY CONTROLLER: 1. ROJAS ARCOS PREOPERATIVE DIAGNOSES: 1. Morbid obesity due to excess calories 2. Body mass index of 67.1 to 64.0 3. Osteoarthritis of the knees. 4. Osteoarthritis of the hips. 5. Osteoarthritis of the lower back. 6. Depressive disorder 7. Hypertensive heart disease. 8. Hypothyroidism 9. Atrial fibrillation 10. Chronic anticoagulation 11. Gallstones 12. Fatty liver disease 13. Hypercoagulable disorder POSTOPERATIVE DIAGNOSES: 1. Morbid obesity due to excess calories 2. Body mass index of 67.1 to 64.0 3. Osteoarthritis of the knees. 4. Osteoarthritis of the hips. 5. Osteoarthritis of the lower back. 6. Depressive disorder 7. Hypertensive heart disease. 8. Hypothyroidism 9. Atrial fibrillation 10. Chronic anticoagulation 11. Gallstones 12. Fatty liver disease 13. Hypercoagulable disorder OPERATION: 1. Robotic assisted daVinci Xi laparoscopic sleeve gastrectomy with 40-Citizen [place] bougie, multiport. 2. Robotic assisted daVinci Xi laparoscopic cholecystectomy with FIREFLY, multiport. 3. Intraoperative esophagogastroduodenoscopy. ANESTHESIA: Gen. local anesthetic ESTIMATED BLOOD LOSS: 20 mL SPECIMENS REMOVED: Sleeve gastrectomy and gallbladder COMPLICATIONS: None. INDICATIONS: Chelsi Bhatia is a 67-year-old female who comes in with long- standing morbid obesity. She reports developing high blood pressure as a result of her obesity. She presents for looking a bariatric procedure. No family history of stomach or esophageal cancer. She has a family history of blood clotting disorder. She denies lupus or multiple sclerosis in her family or herself. No reports of Crohn's disease or ulcer colitis. She has a strong family history of obesity. She has family history of diabetics. She reports lower back pain including hip pain and knee pain. She has active gallbladder disease. She has completed full bariatric assessment and has elected for sleeve gastrectomy. At height of 5 feet 4 inches, her ideal body weight is 144 pounds. She was 390 pounds down to 376 pounds. Body mass index is 67.1 down to 64.0. She also comes in with symptomatic gallstones. She comes in for sleeve gastrectomy and cholecystectomy. All surgical options for morbid obesity had been described using the [place] bariatric surgery collaborative comorbidity resolution including complication risk score. A second-generation bariatric consent form was described in detail including the possibility of protein malnutrition, leaks, gastric stricture, venous thrombosis , gastroesophageal reflux disease, need for further surgery for which she demonstrated understanding. Benefits and risks of the procedure were described at length. Informed consent was obtained. DESCRIPTION: The patient was brought into the operating room theater. Preoperatively he had received Lovenox subcutaneously for DVT prophylaxis. Additionally he had Peridex oral solution as an oral decontaminant. After general induction, the abdomen was prepped and draped in standard sterile fashion. An Ioban draping was placed along the abdomen. No stone catheter was placed A robotic da Ralph Xi system was prepped and primed. The xiphoid to umbilicus measured 35 cm. At 15 cm from the xiphoid, proposed port sites were marked with indelible marker along the anterior axillary line bilaterally, mid axillary line bilaterally with each ports were marked 10 to 15 cm from each other. The environmental assistant port was marked along the left lateral abdominal wall. The robotic stapler port was marked for the right midclavicular line. A 5 mm 0 degrees laparoscopic trocar entry was performed along the left upper quadrant. The abdomen was insufflated to 15 mmHg pressure he tolerated well. Diagnostic laparoscopy demonstrated no injury to bowel, viscera, or mesentery. The liver surface was remarkable for moderate hepatomegaly. Peritoneal adhesions along the epigastrium was identified, however disturbed. No injury had occurred to the small bowel or viscera. Along the hiatus no evidence of large prominent hiatal hernia. A 12 mm port was placed along the left upper abdominal wall after exchanging the 5 mm port. Another port was placed along the left lateral abdominal wall 8 mm. A separate 8 mm port was placed along the right lateral abdominal wall and a 12-mm port placed along the right upper quadrant. Please note that the ports were placed at least 20 cm away from the target anatomy. Care was taken to check each robotic arms were safely away from collision with the bed or the patient. At the epigastrium, a median sized Freddy liver retractor was placed under direct visualization with the Iron Exhibit Cleaner placed under the right shoulder of the patient. Next, 12-mm robot stapler port was placed along the right upper quadrant. The camera 8-mm port was maintained along the epigastrium, The patient was repositioned in reverse Trendelenburg position at 14-degrees after lowering the bed. The robot was docked along the left side of the patient. Using a grasper for arm 2, a hook cautery for arm 3, including grasper for arm 1 , the robotic system was docked and primed as described. Instruments including Bovie cautery, vessel sealer, and staplers, and clips were interchanged by the environmental assistant for stapler loads. The camera was placed at 30-degrees down. Initial docking the robot was appeared for the gallbladder along the right upper abdomen. I had sat at the console. Attention is now brought to her gallbladder. Adhesions were identified along the infundibulum of the gallbladder and addressed using hook cautery. The gallbladder fundus was retracted over the dome of the liver. Initial attention was brought to the infundibulum which was gently retracted in the inferior lateral approach. Using a grasper, the cystic duct including the cystic artery was carefully skeletonized. FIREFLY was used to identify the cystic artery and cystic structures. Large PLASTIC clips were used throughout the entire case. Using a clip consumer education specialist 2 clips were placed proximally, and 1 clip was placed distally along the cystic duct and then cauterized with the cautery. Again care was taken to avoid any injury to the biliary tree as the common bile duct was clearly visualized during this portion of dissection. Next, the cystic artery was similarly clipped and cauterized. Electro-Bovie cautery was used to remove the gallbladder from the hepatic fossa. Hemostasis was checked and found to be adequate. Attention was brought to the sleeve gastrectomy portion of the case. The robotic arms were undocked and re-docked along the left upper abdomen. The pylorus was identified and 6 cm proximally along the greater curvature of the stomach, the short gastrics were mobilized upwards to the angle of His using a vessel sealer. Hemostasis was excellent during this portion of the procedure. Next, the upper pole of the stomach was adherent to the left iban, which was gently dissected free using atraumatic grasper. The nursing podiatric physician placed a 40-Citizen [place] blunted bougie into the stomach. Robotic stapler green and blue loads 45 mm x 11 were used to create the sleeve. Initial firing was across the antrum of the stomach towards the angle of His. The staple line was completely hemostatic and linear without corkscrewing. Hemostasis was excellent. The space from the angularis incisura of the sleeve was approximately 4 cm. I then went to the head of the bed to perform the intraoperative esophagogastroduodenoscopy leak test. The upper pole of the stomach was bathed using normal saline solution. The scope was withdrawn with careful inspection along the staple line for which no leaks were found along the entire length. Additionally, the sleeve was completely hemostatic without any encroachment along the angularis incisura. Its topology was a soft "J". No stricture was encountered upon placement of the scope. The GI tract was desufflated. The patient tolerated this portion of the procedure well. The scope was completely withdrawn. The robot was undocked. I then rescrubbed into case, whereby the irrigation fluid was aspirated from the abdominal cavity. Tisseal fibrin sealant was placed along the entire staple length. Once dried the Freddy liver retractor was removed. Attention was now brought to removal of the specimens including the gallbladder. The distal end of the sleeve gastrectomy specimen was brought out through the 12 mm port at the left upper quadrant. The specimen was gently removed en total, corresponding to 30 cm x 4 cm sleeve gastrectomy specimen. No contamination had occurred during this process. All instruments and pneumoperitoneum including irrigation fluid was removed from the abdominal cavity. The 12 mm port site was irrigated with warm normal saline solution and diluted hydron peroxide. The final incisions were closed using subcuticular interrupted suture of 4-0 Monocryl. Dermabond was applied to the skin once the skin had been cleansed. OptiFoam dressing was placed along the stomach extraction site. At the end of the procedure, needle, sponge, and instrument count was verified correct by the surgical oncologist. The patient was taken to the postanesthesia care unit in stable condition. She had tolerated the procedure well. Intraoperative films and findings were reviewed with the patient's family. FINDINGS: 1. Negative intraoperative esophagogastrojejunoscopy leak test. 2. Hepatomegaly but no large hiatus hernia. 3. Total of 11 staplers used including 4 - 45 mm green robot gregory and 7 - 45 mm blue robot loads used to create the gastric sleeve. 4. Xiphoid to umbilicus of 35 cm. 5. Trochars placed 20 cm from xiphoid process 6. Sleeve gastrectomy 30 x 4 cm 7. Console time 87 minutes total: 23 minutes gallbladder, 58 minutes sleeve gastrectomy.
[2018-03-09] MEDS: 0.9% NACL WITH KCL 20 MEQ/L 1,000 ML IV SCH ×2 (15:07→21:12)
[2018-03-09] MEDS: ALBUTEROL NEBULIZED 2.5 MG/3 ML INHALATION SCH ×2 (16:31→20:25)
[2018-03-09] MEDS ORDERED: ONDANSETRON 4 MG/2 ML VIAL IVP SCH (18:00)
[2018-03-09] MEDS: SIMETHICONE 40 MG/0.6 ML DROPS 2,000 MG/30 ML BOTTLE PO SCH (18:18)
[2018-03-09] MEDS: HYOSCYAMINE ORAL DROPS 1.875 MG/15 ML BOTTLE PO SCH (18:21)
[2018-03-09] MEDS: AMPICILLIN-SULBACTAM 3 GM in SODIUM CHLORIDE 0.9% 100 ML IVPB SCH (18:27)
[2018-03-09] MEDS: CARVEDILOL 12.5 MG TAB PO SCH (18:30)
[2018-03-09] MEDS ORDERED: DEXAMETHASONE SOD PHOSPHATE 10 MG/ML 1 ML VIAL IV STA (20:54)
[2018-03-09] MEDS: LISINOPRIL 10 MG TAB PO SCH (21:11)
[2018-03-10] MEDS: METOCLOPRAMIDE 5 MG/ML 2 ML VIAL IVP SCH ×4 (00:22→17:01)
[2018-03-10] MEDS: SIMETHICONE 40 MG/0.6 ML DROPS 2,000 MG/30 ML BOTTLE PO SCH ×4 (00:23→17:01)
[2018-03-10] MEDS: DEXAMETHASONE SOD PHOSPHATE 4 MG/ML 1 ML VIAL IV SCH ×4 (00:23→17:01)
[2018-03-10] MEDS: AMPICILLIN-SULBACTAM 3 GM in SODIUM CHLORIDE 0.9% 100 ML IVPB SCH (00:23)
[2018-03-10] MEDS: HYOSCYAMINE ORAL DROPS 1.875 MG/15 ML BOTTLE PO SCH ×4 (00:23→17:01)
[2018-03-10] MEDS: ONDANSETRON 4 MG/2 ML VIAL IVP SCH ×4 (00:23→17:01)
[2018-03-10] MEDS: HYDROcodone/APAP 15 ML SOLUTION PO PRN ×2 (01:04→14:59)
[2018-03-10] MEDS: 0.9% NACL WITH KCL 20 MEQ/L 1,000 ML IV SCH ×3 (05:04→11:37)
[2018-03-10 07:32] LABS: Basophils % (A) 0 %; Eosinophils # (A) 0.1 k/uL (0-0.7); Eosinophils % (A) 0 %; HCT 37.9 % (34.0-46.0); HGB 12.1 gm/dL (11.4-16.0); Lymphocytes # (A) 0.9 k/uL (1.0-4.8); Lymphocytes % (A) 7 %; MCH 27.3 pg (25.0-35.0); MCV 85.2 fL (80.0-100.0); Mean Platelet Volume 8.7; Monocytes # (A) 0.4 k/uL (0-1.0); Monocytes % (A) 3 %; Neutrophils # (A) 12.8 k/uL (1.3-7.7); Neutrophils % (A) 90 %; Platelet Count 209 k/uL (150-450); RBC 4.45 m/uL (3.80-5.40); RDW 14.1 % (11.5-15.5); WBC 14.3 k/uL (3.8-10.6)
[2018-03-10 07:40] LABS: Calcium 9.2 mg/dL (8.4-10.2); Magnesium 1.7 mg/dL (1.6-2.3); Phosphorus 2.8 mg/dL (2.5-4.5); Potassium 5.1 mmol/L (3.5-5.1)
[2018-03-10] MEDS: ENOXAPARIN 40 MG/0.4 ML SYRINGE SQ SCH ×2 (07:53→19:52)
[2018-03-10] MEDS: CARVEDILOL 12.5 MG TAB PO SCH ×2 (07:53→17:00)
[2018-03-10] MEDS: PANTOPRAZOLE 40 MG/10 ML VIAL IV SCH (07:58)
[2018-03-10] MEDS: ALBUTEROL NEBULIZED 2.5 MG/3 ML INHALATION SCH ×4 (09:02→20:54)
--- NOTE | 2018-03-10 09:51 | FL ---
SINGLE CONTRAST UPPER GI EXAMINATION: CLINICAL HISTORY: 67-year-old female postop bariatric surgery, gastric sleeve and cholecystectomy. TECHNIQUE: Single contrast exam performed with 50 ml Isovue-370 contrast. Total fluoroscopy time: 1 minute 34 seconds. Total images: 22. FINDINGS: The patient swallowed oral contrast without difficulty or delay. Esophageal peristalsis and motility are within normal limits. There is prompt flow of contrast from the esophagus into the stomach. Pos tsurgical changes of sleeve gastrectomy are demonstrated. There is delay in passage of contrast from the stomach into the duodenum and as the patient ingests more contrast, there is eventual back up int o the lower esophagus. Eventually, gradual transit into the duodenum is noted. There is no evidence o f contrast extravasation to suggest leak. No postsurgical free air. IMPRESSION: No evidence of leak status post sleeve gastrectomy. There is mild postoperative obstruction at the le albertina of the distal stomach.
[2018-03-10 10:27] VITALS: BMI 64.6
[2018-03-10] MEDS ORDERED: BISACODYL 10 MG SUPP RECTAL STA (14:44)
--- NOTE | 2018-03-10 14:53 | P.PN ---
<Kristen Slaughter - Last Filed: 03/10/18 14:46> Subjective Progress Note Date: 03/10/18 67-year-old female seen at the bedside this morning. Patient developed urinary retention postop. Patient reports no nausea vomiting is currently tolerating a bariatric diet. Has been up ambulating in the hallway reports pain medication effective for pain control. Abdomen soft surgical dressing sites dry no stool not passing gas Patient has long-standing history of morbid obesity. Presented for bariatric procedure. Underwent.Robotic assisted daVinci Xi laparoscopic sleeve gastrectomy On March 10 Objective - Vital Signs Vital signs: Vital Signs Temp 98.2 F 03/10/18 14:10 Pulse 79 03/10/18 14:10 Resp 16 03/10/18 14:10 BP 132/76 03/10/18 14:10 Pulse Ox 97 03/10/18 14:10 Intake & Output 03/09/18 03/10/18 03/10/18 18:59 06:59 18:59 Intake Total 1800 1800 400 Output Total 220 1500 150 Balance 1580 300 250 Weight 170.8 kg 170.8 kg 170.8 kg Intake: IV 1800 400 0.9% NaCl with KCl 20 Meq 400 /l 1,000 ml @ 100 mls/hr IV .Q10H [facility] Rx#: [id number] Intake, IV Titration 1800 Amount 0.9% NaCl with KCl 20 Meq 1800 /l 1,000 ml @ 150 mls/hr IV .[id number] [facility] Rx#: [id number] Output: Urine 200 1500 150 Straight 1000 Estimated Blood Loss 20 - Exam Physical exam 67-year-old female sitting up in a chair appears in no acute distress Lungs adequate air movement bilaterally 97% sat on room air no shortness of breath heart S1-S2 audible regular Abdomen obese soft nontender surgical dressing sites dry nondistended bowel tones present states belching no bowel movement not passing gas to develop urinary retention has been straight cath per protocol Extremities trace pedal edema bilaterally - Labs CBC & Chem 7: 03/10/18 06:50 03/10/18 06:50 Labs: Abnormal Lab Results - Last 24 Hours (Table) 03/10/18 03/10/18 Range/Units 06:50 06:50 WBC 14.3 H (3.8-10.6) k/uL Neutrophils # 12.8 H (1.3-7.7) k/uL Lymphocytes # 0.9 L (1.0-4.8) k/uL Chloride 110 H (98-107) mmol/L Assessment and Plan Assessment: Impression Robotic assisted daVinci Xi laparoscopic sleeve gastrectomy, robotic laparoscopic cholecystectomy,Intraoperative esophagogastroduodenoscopy . Morbid obesity due to excessive calories BMI 67 down to 64 Osteoarthritis of the knees, hips, and lower back Depressive disorder Paroxysmal atrial fibrillation on chronic anticoagulation Hypothyroid Symptomatic gallstones Expected outcome urinary retention due to anesthesia and a medication Plan Encourage ambulation Continue bladder scan Dulcolax suppository if needed when necessary constipation Continue postop surgical care Continue bariatric diet Encourage use of incentive spirometer DVT and GI prophylaxis The above impression and plan of care have been discussed and directed by signing physician. Kristen Slaughter nurse practitioner acting as scribe for signing physician. <Dionne Cool N - Last Filed: 03/11/18 07:33> Objective - Vital Signs Vital signs: Vital Signs Temp 97.6 F 03/11/18 00:54 Pulse 57 L 03/11/18 00:54 Resp 16 03/11/18 03:12 BP 112/66 03/11/18 00:54 Pulse Ox 97 03/11/18 00:54 Intake & Output 03/10/18 03/11/18 03/11/18 18:59 06:59 18:59 Intake Total 720 Output Total 250 800 Balance 470 -800 Weight 170.8 kg 170.8 kg Intake: IV 400 0.9% NaCl with KCl 20 Meq 400 /l 1,000 ml @ 100 mls/hr IV .Q10H [facility] Rx#: [id number] Oral 320 Output: Urine 250 800 Uretheral ([place]) 400 - Labs CBC & Chem 7: 03/10/18 06:50 03/10/18 06:50 Labs: Abnormal Lab Results - Last 24 Hours (Table) 03/10/18 03/10/18 Range/Units 06:50 06:50 WBC 14.3 H (3.8-10.6) k/uL Neutrophils # 12.8 H (1.3-7.7) k/uL Lymphocytes # 0.9 L (1.0-4.8) k/uL Chloride 110 H (98-107) mmol/L Assessment and Plan Plan: Discontinue potassium from IV Flomax for urinary retention Correct low magnesium for nausea
[2018-03-10] MEDS: LISINOPRIL 10 MG TAB PO SCH (19:53)
[2018-03-11] MEDS: HYOSCYAMINE ORAL DROPS 1.875 MG/15 ML BOTTLE PO SCH ×4 (00:23→17:21)
[2018-03-11] MEDS: DEXAMETHASONE SOD PHOSPHATE 4 MG/ML 1 ML VIAL IV SCH ×4 (00:23→17:21)
[2018-03-11] MEDS: SIMETHICONE 40 MG/0.6 ML DROPS 2,000 MG/30 ML BOTTLE PO SCH ×4 (00:24→17:20)
[2018-03-11] MEDS: ONDANSETRON 4 MG/2 ML VIAL IVP SCH ×4 (00:24→17:21)
[2018-03-11] MEDS: METOCLOPRAMIDE 5 MG/ML 2 ML VIAL IVP SCH ×4 (00:24→17:21)
[2018-03-11 02:33] VITALS: RESP 16
[2018-03-11] MEDS: 0.9% NACL WITH KCL 20 MEQ/L 1,000 ML IV SCH (05:19)
[2018-03-11] MEDS ORDERED: TAMSULOSIN 0.4 MG CAP.ER.24H PO STA (07:19)
[2018-03-11] MEDS: CARVEDILOL 12.5 MG TAB PO SCH ×2 (07:35→17:18)
[2018-03-11 07:53] LABS: Basophils % (A) 0 %; Eosinophils # (A) 0.1 k/uL (0-0.7); Eosinophils % (A) 1 %; HCT 34.3 % (34.0-46.0); HGB 10.7 gm/dL (11.4-16.0); Lymphocytes # (A) 1.9 k/uL (1.0-4.8); Lymphocytes % (A) 16 %; MCHC 31.2 g/dL (31.0-37.0); MCV 86.5 fL (80.0-100.0); Mean Platelet Volume 8.2; Monocytes # (A) 0.8 k/uL (0-1.0); Monocytes % (A) 7 %; Neutrophils # (A) 8.8 k/uL (1.3-7.7); Neutrophils % (A) 74 %; Platelet Count 189 k/uL (150-450); RBC 3.97 m/uL (3.80-5.40); RDW 14.5 % (11.5-15.5); WBC 11.8 k/uL (3.8-10.6)
[2018-03-11] MEDS ORDERED: BISACODYL 5 MG TABLET.DR PO PRN (08:00)
[2018-03-11 08:02] LABS: Calcium 9.5 mg/dL (8.4-10.2); Potassium 4.9 mmol/L (3.5-5.1)
--- NOTE | 2018-03-11 08:28 | P.PN ---
<Luisa Slaughterne M - Last Filed: 03/11/18 08:24> Subjective Progress Note Date: 03/11/18 67-year-old female seen at the bedside this morning continues to report having postoperative urinary retention. Nursing reports patient did not void last night bladder scanned received 500 output. Reportedly has started a dose of Flomax this morning states is tolerating a diet. Reports that she has been up ambulating in the hallway yesterday. Reports the abdominal pain is been effectively controlled by the current analgesics. Surgical dressings dry abdomen not distended soft surgical tenderness appropriate Presented for bariatric procedure for long-standing history of morbid obesity. Underwent.Robotic assisted daVinci Xi laparoscopic sleeve gastrectomy On March 10 Objective - Vital Signs Vital signs: Vital Signs Temp 97.6 F 03/11/18 00:54 Pulse 57 L 03/11/18 00:54 Resp 16 03/11/18 03:12 BP 112/66 03/11/18 00:54 Pulse Ox 97 03/11/18 00:54 Intake & Output 03/10/18 03/11/18 03/11/18 18:59 06:59 18:59 Intake Total 720 Output Total 250 800 Balance 470 -800 Weight 170.8 kg 170.8 kg Intake: IV 400 0.9% NaCl with KCl 20 Meq 400 /l 1,000 ml @ 100 mls/hr IV .Q10H [facility] Rx#: [id number] Oral 320 Output: Urine 250 800 Uretheral (Saucedo) 400 - Exam Physical exam 67-year-old female resting in bed appears in no acute distress Lungs adequate air movement bilaterally on room air Heart S1-S2 audible regular Abdomen surgical dressing sites dry reports no nausea no vomiting obese soft surgical tenderness appropriate reportedly tolerating bariatric clear liquids has not urinated urinary retention persist no stool Extremities puffiness to the hands Venodyne's on bilateral lower extremity - Labs CBC & Chem 7: 03/11/18 07:33 03/11/18 07:33 Labs: Abnormal Lab Results - Last 24 Hours (Table) 03/10/18 03/11/18 03/11/18 Range/Units 06:50 07:33 07:33 WBC 14.3 H 11.8 H (3.8-10.6) k/uL Hgb 10.7 L (11.4-16.0) gm/dL Neutrophils # 12.8 H 8.8 H (1.3-7.7) k/uL Lymphocytes # 0.9 L (1.0-4.8) k/uL Chloride 109 H (98-107) mmol/L BUN 21 H (7-17) mg/dL Glucose 100 H (74-99) mg/dL Assessment and Plan Assessment: Impression Robotic assisted daVinci Xi laparoscopic sleeve gastrectomy, robotic laparoscopic cholecystectomy,Intraoperative esophagogastroduodenoscopy . Morbid obesity due to excessive calories BMI 67 down to 64 Osteoarthritis of the knees, hips, and lower back Depressive disorder Paroxysmal atrial fibrillation on chronic anticoagulation Hypothyroid Symptomatic gallstones Expected outcome urinary retention due to anesthesia and a medication Hyperkalemia with hypo-magnesium 1.7 Plan correct magnesium Removed the potassium from the IV Encourage ambulation Continue bladder scan Dulcolax suppository if needed when necessary constipation Continue postop surgical care Continue bariatric diet Encourage use of incentive spirometer DVT and GI prophylaxis The above impression and plan of care have been discussed and directed by signing physician. Kristen Slaughter nurse practitioner acting as scribe for signing physician. <Dionne Cool N - Last Filed: 03/11/18 18:40> Objective - Vital Signs Vital signs: Vital Signs Temp 98 F 03/11/18 14:59 Pulse 76 03/11/18 17:18 Resp 16 03/11/18 14:59 BP 99/61 03/11/18 14:59 Pulse Ox 94 L 03/11/18 14:59 Intake & Output 03/10/18 03/11/18 03/11/18 18:59 06:59 18:59 Intake Total 720 700 Output Total 615 310 4125 Balance 470 -800 -850 Weight 170.8 kg 170.8 kg Intake: IV 400 0.9% NaCl with KCl 20 Meq 400 /l 1,000 ml @ 100 mls/hr IV .Q10H [facility] Rx#: [id number] Intake, IV Titration 700 Amount 0.9% NaCl with KCl 20 Meq 600 /l 1,000 ml @ 100 mls/hr IV .Q10H [facility] Rx#: [id number] Magnesium Sulfate-D5w Pmx 100 1 gm In Dextrose/Water 1 100ml.bag @ 100 mls/hr IVPB Q1H [facility] Rx#: [id number] Oral 320 Output: Urine 507 [id number] Uretheral (Saucedo) 400 - Labs CBC & Chem 7: 03/11/18 15:09 03/11/18 07:33 Labs: Abnormal Lab Results - Last 24 Hours (Table) 03/11/18 03/11/18 03/11/18 Range/Units 07:33 07:33 15:09 WBC 11.8 H (3.8-10.6) k/uL Hgb 10.7 L 11.2 L (11.4-16.0) gm/dL Neutrophils # 8.8 H (1.3-7.7) k/uL Chloride 109 H (98-107) mmol/L BUN 21 H (7-17) mg/dL Glucose 100 H (74-99) mg/dL Assessment and Plan Plan: This evening she is urinating well. She is tolerating diet. Discharge instructions reviewed. Patient is stable to go home.
[2018-03-11 08:46] VITALS: TEMP 98
[2018-03-11] MEDS: ENOXAPARIN 40 MG/0.4 ML SYRINGE SQ SCH (08:53)
[2018-03-11] MEDS: PANTOPRAZOLE 40 MG/10 ML VIAL IV SCH (08:53)
[2018-03-11] MEDS: MAGNESIUM SULFATE-D5W PMX 1 GM in DEXTROSE/WATER 1 100ML.BAG IVPB SCH ×2 (08:53→10:18)
[2018-03-11] MEDS: ALBUTEROL NEBULIZED 2.5 MG/3 ML INHALATION SCH ×3 (08:58→17:03)
[2018-03-11] MEDS ORDERED: MAGNESIUM HYDROXIDE 2,400 MG/10 ML CUP PO PRN (11:20)
[2018-03-11 14:59] VITALS: BP 99/61
[2018-03-11 16:13] LABS: HCT 34.4 % (34.0-46.0); HGB 11.2 gm/dL (11.4-16.0); MCH 27.9 pg (25.0-35.0); MCHC 32.6 g/dL (31.0-37.0); MCV 85.5 fL (80.0-100.0); Mean Platelet Volume 7.9; Platelet Count 168 k/uL (150-450); RBC 4.02 m/uL (3.80-5.40); RDW 14.2 % (11.5-15.5)
[2018-03-11 16:58] LABS: Neutrophils % (M) 72 %; Nucleated Red Blood Cells 0 /100 WBC (0-0); Total Cells Counted 100
[2018-03-11 17:07] VITALS: PULSE 76
--- NOTE | 2018-03-12 07:31 | P.DS ---
Providers Date of admission: 03/09/18 08:20 Expected date of discharge: 03/11/18 Attending physician: Dionne Cool Primary care physician: Aki Quan Plan - Discharge Summary Discharge Rx Participant: Yes New Discharge Prescriptions: New Enoxaparin [Lovenox] 60 mg SQ DAILY #7 syringe HYDROcodone/APAP [Pepin Elixir 7.5-325Mg/15Ml] 15 ml PO Q6HR PRN #280 solution PRN Reason: Severe Pain Bisacodyl [Dulcolax] 5 mg PO DAILY PRN #10 tablet. PRN Reason: Constipation Carvedilol [Coreg*] 12.5 mg PO BID-W/MEALS tab Omeprazole 40 mg PO DAILY #30 capsule. Ondansetron Odt [Zofran Odt] 4 mg PO Q8HR PRN #9 tab PRN Reason: Nausea Simethicone 40 mg/0.6 ml Drops [Mylicon Drops] 40 mg PO PCHS PRN #30 ml PRN Reason: Gas Tamsulosin [Flomax] 0.4 mg PO DAILY #7 cap Continue Lisinopril [Zestril] 10 mg PO HS buPROPion HCL [buPROPion HCL SR] 150 mg PO Q2D Citalopram Hydrobromide [Citalopram HBr] 20 mg PO HS Discontinued Ergocalciferol (Vitamin D2) [Vitamin D2] 1 cap PO TH Carvedilol [Coreg] 12.5 mg PO BID Discharge Medication List Citalopram Hydrobromide [Citalopram HBr] 20 mg PO HS 11/20/17 [History] Lisinopril [Zestril] 10 mg PO HS 11/20/17 [History] buPROPion HCL [buPROPion HCL SR] 150 mg PO Q2D 11/20/17 [History] Bisacodyl [Dulcolax] 5 mg PO DAILY PRN #10 tablet. 03/11/18 [Rx] Carvedilol [Coreg*] 12.5 mg PO BID-W/MEALS tab 03/11/18 [Rx] Enoxaparin [Lovenox] 60 mg SQ DAILY #7 syringe 03/11/18 [Rx] HYDROcodone/APAP [Pepin Elixir 7.5-325Mg/15Ml] 15 ml PO Q6HR PRN #280 solution 03/11/18 [Rx] Omeprazole 40 mg PO DAILY #30 capsule. 03/11/18 [Rx] Ondansetron Odt [Zofran Odt] 4 mg PO Q8HR PRN #9 tab 03/11/18 [Rx] Simethicone 40 mg/0.6 ml Drops [Mylicon Drops] 40 mg PO PCHS PRN #30 ml [Rx] Tamsulosin [Flomax] 0.4 mg PO DAILY #7 cap 03/11/18 [Rx] Follow up Appointment(s)/Referral(s): [facility] [NON-STAFF] - 03/13/18 10:00 am Patient Instructions/Handouts: Enoxaparin (By injection), Nutrition after Bariatric Surgery (DC), Laparoscopic Sleeve Gastrectomy (DC) Activity/Diet/Wound Care/Special Instructions: NO lifting over 4 pounds in 4 weeks. No shower. No bathtub soaks. Dressings to be removed by your doctor in the office. EAT 75 G PROTEIN DAILY FOR OPTIMAL RECOVERY. Discharge Disposition: HOME SELF-CARE
== END 2018-03-11 19:20 | disposition home or self-care (01) | DRG 620 ==
LOC: 2ORMAIN 08:20 → 3SUR 13:38
PROVIDERS: ADMIT Surgery Plastic and Reconstructive Surgery; ATTEND Surgery Plastic and Reconstructive Surgery
PROC: 8E0W4CZ Robotic Assisted Procedure of Trunk Region, Percutaneous Endoscopic Approach (ICD-10-PCS; 2018-03-09)
PROC: 0DJ08ZZ Inspection of Upper Intestinal Tract, Via Natural or Artificial Opening Endoscopic (ICD-10-PCS; 2018-03-09)
PROC: 0DB64Z3 Excision of Stomach, Percutaneous Endoscopic Approach, Vertical (ICD-10-PCS; principal; 2018-03-09 10:20)
PROC: 0FT44ZZ Resection of Gallbladder, Percutaneous Endoscopic Approach (ICD-10-PCS; 2018-03-09 10:20)
DX: E66.01 Morbid (severe) obesity due to excess calories (principal); D68.2 Hereditary deficiency of other clotting factors; I48.0 Paroxysmal atrial fibrillation; E83.42 Hypomagnesemia; E87.5 Hyperkalemia; Z68.44 Body mass index [BMI] 60.0-69.9, adult; K76.0 Fatty (change of) liver, not elsewhere classified; I11.9 Hypertensive heart disease without heart failure; K80.20 Calculus of gallbladder without cholecystitis without obstruction; K44.9 Diaphragmatic hernia without obstruction or gangrene; F32.9 Major depressive disorder, single episode, unspecified; E03.9 Hypothyroidism, unspecified; M16.0 Bilateral primary osteoarthritis of hip; M17.0 Bilateral primary osteoarthritis of knee; M47.9 Spondylosis, unspecified; R33.9 Retention of urine, unspecified; K76.9 Liver disease, unspecified; R16.0 Hepatomegaly, not elsewhere classified; G47.33 Obstructive sleep apnea (adult) (pediatric); F41.9 Anxiety disorder, unspecified; K29.50 Unspecified chronic gastritis without bleeding; K20.9 Esophagitis, unspecified; Z79.01 Long term (current) use of anticoagulants; Z79.890 Hormone replacement therapy; Z79.899 Other long term (current) drug therapy; Z88.2 Allergy status to sulfonamides; Z91.040 Latex allergy status; Z98.84 Bariatric surgery status; Z86.711 Personal history of pulmonary embolism; Z80.0 Family history of malignant neoplasm of digestive organs; Z80.1 Family history of malignant neoplasm of trachea, bronchus and lung; Z83.2 Family history of diseases of the blood and blood-forming organs and certain disorders involving the immune mechanism; Z83.3 Family history of diabetes mellitus; Z84.89 Family history of other specified conditions
CPT/HCPCS: 36415; 74240; 80048; 80051; 80053; 82310; 82565; 83735; 84100; 84520; 85025; 85610; 86850; 86900; 86901; 88304; 88307; 94640; 94762

== ENCOUNTER → 2018-03-27 | Outpatient (CLI) | payer MEDICARE ==
[2018-03-27 11:53] LABS: HCT 39.2 % (34.0-46.0); HGB 13.1 gm/dL (11.4-16.0); MCH 28.3 pg (25.0-35.0); MCHC 33.4 g/dL (31.0-37.0); MCV 84.7 fL (80.0-100.0); Mean Platelet Volume 7.7; Platelet Count 274 k/uL (150-450); RBC 4.62 m/uL (3.80-5.40); RDW 14.7 % (11.5-15.5); WBC 7.5 k/uL (3.8-10.6)
[2018-03-27 12:25] LABS: Calcium 10.1 mg/dL (8.4-10.2); Magnesium 1.6 mg/dL (1.6-2.3); Phosphorus 3.5 mg/dL (2.5-4.5); Potassium 4.1 mmol/L (3.5-5.1); Total Bilirubin 0.5 mg/dL (0.2-1.3); Total Protein 7.1 g/dL (6.3-8.2)
[2018-03-27 12:42] LABS: Partial Thromboplastin Time 42.1 sec (22.0-30.0)
[2018-03-27 12:49] LABS: INR 5.6 (<1.2)
[2018-03-27 18:38] LABS: Hemoglobin A1C 5.4 % (4.0-6.0)
[2018-03-27 19:27] LABS: Iron Saturation 20.07 (12.00-45.00); Parathyroid Hormone Intact 49.2 pg/mL (14.0-72.0)
[2018-03-27 19:45] LABS: Folate, Serum 11.6 ng/mL
[2018-03-30 14:47] LABS: Zinc, Serum 94 ug/dL (60-130)
[2018-03-31 08:02] LABS: Vitamin A 42 ug/dL (38-106)
[2018-03-31 10:23] LABS: Vitamin B1 45 ug/L (38-122)
== END | disposition home or self-care (01) ==
LOC: LABWHC1 10:47
PROVIDERS: ATTEND Surgery Plastic and Reconstructive Surgery
DX: E66.01 Morbid (severe) obesity due to excess calories (principal); E21.1 Secondary hyperparathyroidism, not elsewhere classified; E89.1 Postprocedural hypoinsulinemia; D50.9 Iron deficiency anemia, unspecified; K90.9 Intestinal malabsorption, unspecified; E55.9 Vitamin D deficiency, unspecified; K74.1 Hepatic sclerosis; N19 Unspecified kidney failure; K50.90 Crohn's disease, unspecified, without complications
CPT/HCPCS: 36415; 80053; 80061; 82306; 82525; 82607; 82728; 82746; 83036; 83540; 83550; 83735; 83970; 84100; 84134; 84255; 84425; 84443; 84590; 84630; 85027; 85610; 85730

== ENCOUNTER → 2018-09-09 | Outpatient (CLI) | payer MEDICARE ==
[2018-09-09 15:49] LABS: HGB 15.2 gm/dL (11.4-16.0); MCH 27.3 pg (25.0-35.0); MCHC 31.7 g/dL (31.0-37.0); Mean Platelet Volume 7.4; Platelet Count 254 k/uL (150-450); RBC 5.58 m/uL (3.80-5.40); RDW 14.4 % (11.5-15.5); WBC 9.7 k/uL (3.8-10.6)
--- NOTE | 2018-09-09 15:53 | P.PN ---
Subjective Progress Note Date: 09/09/18 DATE OF SERVICE: 09/09/18 CHIEF COMPLAINT: Status post sleeve gastrectomy HISTORY OF PRESENT ILLNESS: Chelsi Bhatia is a 67-year-old female who is status post sleeve gastrectomy, 03/09/18. She is 6 months out. She has only lost 60 pounds since surgery 6 months ago. She reports eating much carbs. She has gone back to poor eating habits. No gastroesophageal reflux disease. No abdominal pain. No chest pain. No fevers or chills. At height of 5 feet 4 inches, her ideal body weight is 144 pounds. She was 390 pounds. Body mass index was 67.1. Today she comes in 331 pounds from 370 pounds, 3 months ago. She has lost 29 pounds in 3 months. Lifetime weight loss, 59 pounds. Percent excess weight loss, 24%. PHYSICAL EXAM: VITAL SIGNS: Height 5 foot 4 inches, weight 370 pounds. BMI 62.0 Vital Signs Temp 97.6 F 09/09/18 15:53 Pulse 84 09/09/18 15:53 Resp BP 139/81 09/09/18 15:53 Pulse Ox GENERAL: Well-developed in no acute distress. HEENT: No scleral icterus. Extraocular movements grossly intact. Hears conversational speech. No nasal drainage. NECK: Supple without lymphadenopathy. CHEST: Nonlabored respirations with equal bilateral excursions. CARDIOVASCULAR: Regular rate and regular rhythm. Distal 2+ pulses. ABDOMEN: Soft, nondistended. Nontender. No hernia. MUSCULOSKELETAL: No clubbing, cyanosis. Gross strength 5/5 distal lower extremities. NEURO: No focal or lateralizing signs. Cranial nerves 2 through 12 grossly within normal limits. PSYCH: Appropriate affect. Alert and oriented to person, place and time. SKIN: Good skin turgor. Well perfused. ASSESSMENT: 1. Morbid obesity due to excess calories 2. Body mass index of 67.1 to 57.0 3. Osteoarthritis of the knees. 4. Osteoarthritis of the hips. 5. Osteoarthritis of the lower back. 6. Depressive disorder 7. Status post sleeve gastrectomy 8. Status post cholecystectomy 9. Hypertensive heart disease 10. Diabetes type 2 11. Hypothyroidism PLAN: 1. Recommend Bariatric labs. 2. Bariatric support group advised. 3. Dietary surveillance and counseling of reduced carbohydrates advised. Laboratory Last Values WBC 9.7 k/uL (3.8-10.6) 09/09/18 15: RBC 5.58 m/uL (3.80-5.40) H 09/09/18 15:28 Hgb 15.2 gm/dL (11.4-16.0) 09/09/18 15:28 Hct 48.0 % (34.0-46.0) H 09/09/18 15:28 MCV 86.0 fL (80.0-100.0) 09/09/18 15: MCH 27.3 pg (25.0-35.0) 09/09/18 15: MCHC 31.7 g/dL (31.0-37.0) 09/09/18 15: RDW 14.4 % (11.5-15.5) 09/09/18 15: Plt Count 254 k/uL (150-450) 09/09/18 15: PT 19.2 sec (9.0-12.0) H 09/09/18 15:28 INR 2.0 (<1.2) H 09/09/18 15:28 APTT 30.5 sec (22.0-30.0) H 09/09/18 15:28 Sodium 141 mmol/L (135-145) 09/09/18 15: Potassium 4.4 mmol/L (3.5-5.5) 09/09/18 15: Chloride 105 mmol/L (96-109) 09/09/18 15: Carbon Dioxide 23.7 mmol/L (21.6-31.8) 09/09/18 15: Anion Gap 12.30 mmol/L (4.00-12.00) H 09/09/18 15:28 BUN 22.0 mg/dL (9.0-27.0) 09/09/18 15: Creatinine 1.1 mg/dL (0.6-1.5) 09/09/18 15:28 Est GFR (CKD-EPI)AfAm 60.6 (60.0-200.0) 09/09/18 15:28 Est GFR (CKD-EPI)NonAf 52.3 (60.0-200.0) L 09/09/18 15:28 BUN/Creatinine Ratio 20.00 Ratio (12.00-20.00) 09/09/18 15:28 Glucose 89 mg/dL (70-110) 09/09/18 15:[address] Glu mg/dL 114 09/09/18 15:28 Hemoglobin A1c 5.6 % (4.0-6.0) 09/09/18 15:28 Calcium 10.3 mg/dL (8.7-10.3) 09/09/18 15:28 Phosphorus 3.6 mg/dL (2.4-5.1) 09/09/18 15:28 Magnesium 1.8 mg/dL (1.5-2.4) 09/09/18 15:28 Iron 58 ug/dL (50-170) 09/09/18 15:28 TIBC 363 ug/dL (228-460) 09/09/18 15:28 Iron Saturation 15.98 (12.00-45.00) 09/09/18 15:28 Ferritin 272.1 ng/mL (10.0-291.0) 09/09/18 15:28 Total Bilirubin 0.3 mg/dL (0.3-1.2) 09/09/18 15:28 AST 32 U/L (13-35) 09/09/18 15:28 ALT 32 U/L (8-44) 09/09/18 15:28 Alkaline Phosphatase 83 U/L (41-126) 09/09/18 15:28 Total Protein 7.1 g/dL (6.2-8.2) 09/09/18 15:28 Albumin 4.70 g/dL (3.80-4.90) 09/09/18 15:28 Globulin 2.4 g/dL (1.6-3.3) 09/09/18 15:28 Albumin/Globulin Ratio 1.96 g/dL (1.60-3.17) 09/09/18 15:28 Prealbumin 27.0 mg/dL (18.0-42.0) 09/09/18 15:28 Triglycerides 230.0 mg/dL (0.0-149.0) H 09/09/18 15:28 Cholesterol 199 mg/dL (0-200) 09/09/18 15:28 LDL Cholesterol, Calc 109.0 mg/dL (0.0-131.0) 09/09/18 15:28 VLDL Cholesterol, Calc 46.00 mg/dL (5.00-40.00) H 09/09/18 15:28 HDL Cholesterol 44.0 mg/dL (40.0-60.0) 09/09/18 15:28 Cholesterol/HDL Ratio 4.52 09/09/18 15:28 Vitamin A 56 ug/dL (38-106) 09/09/18 15:28 Vitamin B1 93 ug/L (38-122) 09/09/18 15:28 Vitamin B12 473.0 pg/mL (200.0-944.0) 09/09/18 15:28 Vitamin D 25-Hydroxy 35.7 ng/mL (30.0-100.0) 09/09/18 15:28 Folate >24.0 ng/mL 09/09/18 15:28 TSH 3.190 uIU/mL (0.350-5.500) 09/09/18 15:28 PTH Intact 86.8 pg/mL (14.0-72.0) H 09/09/18 15:28 Copper 1235 ug/L (810-1990) 09/09/18 15:28 Selenium 113 mcg/L (63-160) 09/09/18 15:28 Zinc 68 ug/dL (60-130) 09/09/18 15:28 Objective - Vital Signs Vital signs: Intake & Output 09/08/18 09/09/18 09/09/18 18:59 06:59 18:59 Weight 150.593 kg - Labs CBC & Chem 7: 09/09/18 15:28 09/09/18 15:28 Labs: Abnormal Lab Results - Last 24 Hours (Table) 09/09/18 Range/Units 15:28 RBC 5.58 H (3.80-5.40) m/uL Hct 48.0 H (34.0-46.0) %
[2018-09-09 15:54] VITALS: BP 139/81; PULSE 84; TEMP 97.6; BMI 56.9
[2018-09-09 15:56] LABS: Partial Thromboplastin Time 30.5 sec (22.0-30.0); Prothrombin Time 19.2 sec (9.0-12.0)
[2018-09-10 01:42] LABS: Iron Saturation 15.98 (12.00-45.00)
[2018-09-10 01:50] LABS: Vitamin D 25 Hydroxy 35.7 ng/mL (30.0-100.0)
[2018-09-10 01:54] LABS: Parathyroid Hormone Intact 86.8 pg/mL (14.0-72.0)
[2018-09-10 02:02] LABS: Folate, Serum >24.0 ng/mL
[2018-09-10 02:48] LABS: Albumin 4.7 g/dL (3.80-4.90); Albumin/Globulin Ratio 1.96 (1.60-3.17); Anion Gap 12.3 mmol/L (4.00-12.00); Calcium 10.3 mg/dL (8.7-10.3); Carbon Dioxide 23.7 mmol/L (21.6-31.8); Globulin 2.4 g/dL (1.6-3.3); Magnesium 1.8 mg/dL (1.5-2.4); Phosphorus 3.6 mg/dL (2.4-5.1); Potassium 4.4 mmol/L (3.5-5.5); Total Bilirubin 0.3 mg/dL (0.3-1.2); Total Protein 7.1 g/dL (6.2-8.2)
[2018-09-10 03:14] LABS: Hemoglobin A1C 5.6 % (4.0-6.0)
[2018-09-10 14:56] LABS: Zinc, Serum 68 ug/dL (60-130)
[2018-09-11 06:13] LABS: Vitamin A 56 ug/dL (38-106)
[2018-09-11 10:08] LABS: Vit B1(Thiamine) 93 ug/L (38-122)
[2018-09-12 13:22] LABS: Selenium 113 mcg/L (63-160)
== END ==
LOC: BARWHC3 13:17
PROVIDERS: ATTEND Surgery Plastic and Reconstructive Surgery
DX: Z09 Encounter for follow-up examination after completed treatment for conditions other than malignant neoplasm (principal); E66.01 Morbid (severe) obesity due to excess calories; F32.9 Major depressive disorder, single episode, unspecified; M16.0 Bilateral primary osteoarthritis of hip; M17.0 Bilateral primary osteoarthritis of knee; M47.9 Spondylosis, unspecified; I11.9 Hypertensive heart disease without heart failure; E11.9 Type 2 diabetes mellitus without complications; E03.9 Hypothyroidism, unspecified; Z68.43 Body mass index [BMI] 50.0-59.9, adult; Z90.49 Acquired absence of other specified parts of digestive tract; Z98.84 Bariatric surgery status
CPT/HCPCS: 84255; 84134; 84425; 80061; 80053; 82607; 82728; 82525; 82746; 83540; 83550; 83735; 84100; 84443; 84590; 84630; 85027; 85610; 85730; 82306; 83970; 83036; 97803; 36415; G0463; 99211

== ENCOUNTER → 2018-09-09 | Outpatient (CLI) | payer MEDICARE | END | disposition home or self-care (01) | LOC: LABWHC1 14:56 | PROVIDERS: ATTEND Surgery Plastic and Reconstructive Surgery | DX: Z53.9 Procedure and treatment not carried out, unspecified reason (principal) ==

== ENCOUNTER → 2020-07-19 | Outpatient (CLI) | payer MEDICARE ==
--- NOTE | 2020-07-20 07:48 | US ---
EXAMINATION TYPE: US kidneys/renal and bladder DATE OF EXAM: 07/19/2020 COMPARISON: NONE CLINICAL HISTORY: 69-year-old female R35.0 Frequency of micturition. TECHNIQUE: Multiple sonographic images of the kidneys and bladder are obtained. FINDINGS: EXAM MEASUREMENTS: Right Kidney: 9.9 x 4.6 x 4.3 cm Left Kidney: unable to visualize [place] notes:Technical limitations due to patient's body habitus (morbidly obese) and large am ount of overlying bowel content Right Kidney: Limited detail visualization, no evidence of hydronephrosis Left Kidney: unable to adequately visualize Bladder: Underdistention limits its evaluation. Bilateral Jets seen: no IMPRESSION: Limited assessment due to patient's large body habitus. No hydronephrosis seen on the right. Unable t o adequately visualize the left kidney.
== END | disposition home or self-care (01) ==
LOC: RADUSWWP 16:13
PROVIDERS: ATTEND Family Medicine
DX: R35.0 Frequency of micturition (principal)
CPT/HCPCS: 76770

== ENCOUNTER → 2020-08-17 | Outpatient (CLI) | payer MEDICARE ==
--- NOTE | 2020-09-11 10:48 | MM ---
Reason for exam: screening (asymptomatic). History: Patient is postmenopausal and had first child at age 33. Family history of breast cancer in maternal aunt at age 50. Took hormonal contraceptives for 4 years. Physical Findings: A clinical breast exam by your physician is recommended on an annual basis and results should be correlated with mammographic findings. MG 3D Screening Mammo W/Cad Bilateral CC and MLO view(s) were taken. No prior studies available for comparison. There are scattered fibroglandular densities. No significant changes when compared with prior studies. ASSESSMENT: Benign, BI-RAD 2 RECOMMENDATION: Routine screening mammogram of both breasts in 1 year.
== END | disposition home or self-care (01) ==
LOC: RADMAMWWP 13:17
PROVIDERS: ATTEND Family Medicine
DX: Z12.31 Encounter for screening mammogram for malignant neoplasm of breast (principal)
CPT/HCPCS: 77063; 77067

== ENCOUNTER → 2020-10-04 | Outpatient (CLI) | payer MEDICARE ==
[2020-10-04 15:05] VITALS: BP 143/84; PULSE 86; RESP 20; TEMP 98.1; BMI 65.2
--- NOTE | 2020-10-04 15:21 | P.PN ---
Subjective Progress Note Date: 10/04/20 She has been lost to follow up and has lost. She has history of polyps. She has change in bowel habits. Recommend referral to urogynecologist. Recommend colonoscopy and EGD for troubles with sleeve. Will need full bariatric lab assessment. She has re-gained 60 pounds. 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 [place]ofy she has started weight gain. Objective - Vital Signs Vital signs: Vital Signs Temp 98.1 F 10/04/20 14:53 Pulse 86 10/04/20 14:53 Resp 20 10/04/20 14:53 BP 143/84 10/04/20 14:53 Pulse Ox Intake & Output 10/03/20 10/04/20 10/04/20 18:59 06:59 18:59 Weight 172.365 kg
== END | disposition home or self-care (01) ==
LOC: BARWHC3 14:30
PROVIDERS: ATTEND Surgery Plastic and Reconstructive Surgery
DX: E66.01 Morbid (severe) obesity due to excess calories (principal); Z71.3 Dietary counseling and surveillance; Z68.44 Body mass index [BMI] 60.0-69.9, adult; Z98.84 Bariatric surgery status
CPT/HCPCS: 97803; G0463; 99211

== ENCOUNTER → 2020-10-20 | Outpatient (CLI) | payer MEDICARE ==
[2020-10-21 02:13] LABS: HCT 47.8 % (37.2-46.3); HGB 14.3 g/dL (12.0-15.0); MCH 26.2 pg (27.0-32.0); MCHC 29.9 g/dL (32.0-37.0); MCV 87.7 fL (80.0-97.0); Mean Platelet Volume 11.6 fL (9.5-12.2); Platelet Count 306 X 10*3/uL (140-440); RBC 5.45 X 10*6/uL (4.10-5.20); RDW 13.8 % (11.5-14.5); WBC 9.71 X 10*3/uL (4.50-10.00)
[2020-10-21 03:50] LABS: INR 1.72 (0.90-1.11); Partial Thromboplastin Time 33.9 sec (23.5-31.0); Prothrombin Time 18.1 sec (9.9-11.9)
[2020-10-21 04:15] LABS: % Iron Saturation 25.3 (12.00-45.00); African American GFR (CKD) 59.7 (60.0-200.0); Albumin 4.5 g/dL (3.80-4.90); Albumin/Globulin Ratio 1.55 (1.60-3.17); BUN/Creat Ratio 18.18 Ratio (12.00-20.00); Calcium 9.6 mg/dL (8.7-10.3); Chol/HDL Ratio 4.07; Globulin 2.9 g/dL (1.6-3.3); LDL Cholesterol,Calculated 93.4 mg/dL (0.0-131.0); Magnesium 1.8 mg/dL (1.5-2.4); Non-African American GFR(CKD) 51.5 (60.0-200.0); Phosphorus 2.9 mg/dL (2.4-5.1); Potassium 4.5 mmol/L (3.5-5.5); Total Bilirubin 0.5 mg/dL (0.3-1.2); Total Protein 7.4 g/dL (6.2-8.2); VLDL Calculation 32.6 mg/dL (5.00-40.00)
[2020-10-21 04:23] LABS: Ferritin 218.9 ng/mL (10.0-291.0)
[2020-10-21 04:32] LABS: Folate, Serum 12.9 ng/mL
[2020-10-21 04:59] LABS: Hemoglobin A1C 5.6 % (4.0-6.0)
[2020-10-23 14:52] LABS: Zinc, Serum 67 ug/dL (60-130)
[2020-10-24 06:38] LABS: Vitamin A 50 ug/dL (38-106)
== END | disposition home or self-care (01) ==
LOC: LABWHC1 16:08
PROVIDERS: ATTEND Surgery Plastic and Reconstructive Surgery
DX: E66.01 Morbid (severe) obesity due to excess calories (principal); E89.1 Postprocedural hypoinsulinemia; D50.8 Other iron deficiency anemias; K90.89 Other intestinal malabsorption; E55.9 Vitamin D deficiency, unspecified; K74.1 Hepatic sclerosis; N19 Unspecified kidney failure; K50.90 Crohn's disease, unspecified, without complications
CPT/HCPCS: 36415; 80053; 80061; 82306; 82525; 82607; 82728; 82746; 83036; 83540; 83550; 83735; 83970; 84100; 84134; 84255; 84425; 84443; 84590; 84630; 85027; 85610; 85730

== ENCOUNTER 2020-10-23 07:08 | Day surgery (SDC) | payer MEDICARE ==
[2020-10-20 11:15] VITALS: BMI 63.2
[~2020-10-23 07:08] MED LIST changes: -CHLORHEXIDINE GLUCONATE 15 ML CUP MUCOUS MEM ONE; -DEXAMETHASONE SOD PHOSPHATE 10 MG/ML 1 ML VIAL IV ONE; -ENOXAPARIN 40 MG/0.4 ML SYRINGE SQ STA; -HYDROmorphone 0.5 MG/0.5 ML SYRINGE IVP PRN; +LIDOCAINE 1% (10MG/ML) FOR IV START INTRADERMA PRN; -ONDANSETRON 4 MG/2 ML VIAL IVP ONE; -PANTOPRAZOLE 40 MG/10 ML VIAL IV STA
[2020-10-23 07:32] VITALS: RESP 16; TEMP 98.7
--- NOTE | 2020-10-23 07:34 | P.GSHP ---
History of Present Illness H&P Date: 10/23/20 CHIEF COMPLAINT: GERD and colon screen HISTORY OF PRESENT ILLNESS: The patient is a 70-year-old female who presents with gastroesophageal reflux disease and need for colon screen. Upper and lower endoscopy were offered for further evaluation and management. PAST MEDICAL HISTORY: Please see list. PAST SURGICAL HISTORY: Please see list. MEDICATIONS: Please see list. ALLERGIES: Please see list. SOCIAL HISTORY: No illicit drug use FAMILY HISTORY: No reports of Crohn disease or ulcerative colitis. REVIEW OF ORGAN SYSTEMS: CONSTITUTIONAL: No reports of fevers or chills. GI: Denies any blood in stools or constipation. PHYSICAL EXAM: VITAL SIGNS: Stable GENERAL: Well-developed pleasant in no acute distress. HEENT: No scleral icterus. Extraocular movements grossly intact. Moist buccal mucosa. NECK: Supple without lymphadenopathy. CHEST: Unlabored respirations. Equal bilateral excursions. CARDIOVASCULAR: Regular rate and rhythm. Distal 2+ pulses. ABDOMEN: Soft, nondistended. MUSCULOSKELETAL: No clubbing, cyanosis, or edema. ASSESSMENT: 1. Gastroesophageal reflux disease 2. Colon screen. PLAN: 1. Recommend proceeding with an upper and lower endoscopy Past Medical History Past Medical History: Blood Disorder, Hypertension, Liver Disease, Osteoarthritis (OA), Pulmonary Embolus (PE), Sleep Apnea/CPAP/BIPAP Additional Past Medical History / Comment(s): Has Factor 2 clotting disorder ; Had PE 2013; uses CPAP; "enlarged liver". chronic kidney disease stage 2. lesion on adrenal gland. urinary incontinence History of Any Multi-Drug Resistant Organisms: None Reported Past Surgical History: Adenoidectomy, Bariatric Surgery, Cholecystectomy, Orthopedic Surgery, Tonsillectomy, Uterine Ablation Additional Past Surgical History / Comment(s): 2 L Arm surgeries (elbow and wrist); Lasix both eyes; Colonoscopy; [ sLEEVE gASTRECTOMY 03-09-18 Past Anesthesia/Blood Transfusion Reactions: No Reported Reaction Smoking Status: Never smoker - Past Family History Mother Family Medical History: Cancer Sister(s) Family Medical History: Cancer Daughter(s) Family Medical History: Blood Disorder, Pulmonary Embolus Additional Family Medical History / Comment(s): FACTOR II MUTATION Medications and Allergies Home Medications Medication Instructions Recorded Confirmed Type Citalopram Hydrobromide 40 mg PO HS 11/20/17 10/23/20 History [Citalopram HBr] lisinopriL [Zestril] 10 mg PO HS 11/20/17 10/23/20 History ARIPiprazole [Abilify] 5 mg PO HS 10/04/20 10/23/20 History Warfarin [Coumadin] 10 mg PO Q48H 10/04/20 10/20/20 History Warfarin [Coumadin] 7.5 mg PO Q48H 10/20/20 10/20/20 History Allergies Allergy/AdvReac Type Severity Reaction Status Date / Time latex Allergy Itching Verified 10/23/20 07:27 Sulfa (Sulfonamide Allergy Rash/Hives Verified 10/23/20 07:27 Antibiotics) Surgical - Exam Vital Signs Temp Pulse Resp BP Pulse Ox 98.7 F 106 H 16 156/84 95 10/23/20 07:30 10/23/20 07:30 10/23/20 07:30 10/23/20 07:30 10/23/20 07:30
[2020-10-23] MEDS ORDERED: PROPOFOL 10 MG/ML 20 ML VIAL IV ONE (07:50)
--- NOTE | 2020-10-23 08:07 | P.PCN ---
Date of Procedure: 10/23/20 Description of Procedure: PREOPERATIVE DIAGNOSIS: Status post sleeve gastrectomy. Gastroesophageal reflux disease. POSTOPERATIVE DIAGNOSIS: Status post sleeve gastrectomy. Gastroesophageal reflux disease. Chronic superficial gastritis with bleeding OPERATION: Esophagogastroduodenoscopy with cold forceps biopsies along the antrum. SURGEON: Dionne Cool MD ANESTHESIA: MAC. INDICATIONS: The patient is a 70-year-old female who presents with a history of sleeve gastrectomy with abdominal pain. She is over 2 years out from her bariatric procedure. Benefits and risks of the procedure were described. Informed consent was obtained. DESCRIPTION: The patient was brought into the endoscopy suite and laid in the left lateral decubitus position. An Olympus gastroscope was passed along the posterior oropharynx down to the distal esophagus where the squamocolumnar junction was at 41 centimeters from the incisors remarkable for chronic erosive esophagitis, LA grade A without ulceration. The stomach was entered where she had a 6-cm hiatal hernia with a diaphragmatic hiatus found at 43 cm. The sleeve reservoir moderately large allowing easy retroflexion of the scope to view the lower esophageal valve. Chronic gastritis albeit mild was found along the antrum without cold biopsies obtained. The first through third portion of the duodenum was examined and unremarkable. The scope again had easily retroflexed along the antrum. The stomach was desufflated. The patient tolerated the procedure well. FINDINGS: No acute ulceration found along her sleeve. No corkscrewing sleeve gastrectomy. Squamocolumnar junction at 41 cm from the incisors. Diaphragmatic hiatus at 41 cm. Moderate large gastric reservoir with prior history of sleeve gastrectomy allowing easy retroflexion of the gastroscope to view the lower esophageal valve. LA grade A erosive esophagitis. No active duodenitis. Acute gastrointestinal bleeding RECOMMENDATIONS: Upper endoscopy as needed.
[2020-10-23 08:53] VITALS: BP 109/58; PULSE 79
--- NOTE | 2020-10-23 09:35 | P.PCN ---
Date of Procedure: 10/23/20 Description of Procedure: PREOPERATIVE DIAGNOSIS: Personal history of colon polyps POSTOPERATIVE DIAGNOSIS: Personal history of colon polyps Tubular adenoma ascending colon Scattered diverticulosis Submucosal lipoma, hepatic flexure OPERATION: Colonoscopy to the ileocecal valve and appendiceal orifice, cecum Colonoscopy with hot snare polypectomy SURGEON: Dionne Cool MD. ANESTHESIA: MAC. INDICATIONS: The patient is an 70-year-old male who presents with personal history of colon polyps. Last colonoscopy 5 years. Benefits and risks were described and informed consent was obtained. DESCRIPTION OF PROCEDURE: The patient had undergone Suprep. The patient had been brought into the ope rating room and laid in the left lateral decubitus position. After adequate intravenous sedation, the rectum was examined with 2% lidocaine jelly. No external hemorrhoids were encountered. The rectal tone was within normal limits. No lesions were palpated in the rectal vault. An Olympus colonoscope was advanced until the cecum, ileocecal valve and appendiceal orifice were clearly viewed. The prep was good. Submucosal lipoma along the hepatic flexure of 1 cm was identified undisturbed. Sigmoid diverticulosis and pandiverticulosis was encountered. Colonic polyps were found and removed. No evidence of focal colitis was found. Retroflexion of the scope demonstrated grade 1 internal hemorrhoids without active bleeding or inflammation. The colon was desufflated. The patient had tolerated the procedure well. Withdrawal time was over 6 minutes. FINDINGS: Aronchick preparation quality scale 2 (1-5) Internal hemorrhoids, grade 1 No external hemorrhoids No arteriovenous malformations. Sigmoid diverticulosis with pandiverticulosis Submucosal colonic lipoma, hepatic flexure, 1 cm Removal of 1 polyp: - Snare polypectomy and ascending colon, 5 mm tubulovillous adenoma polyp. No focal colitis. RECOMMENDATIONS: Repeat colonoscopy 3 years, 2023 Plan - Discharge Summary Discharge Rx Participant: No New Discharge Prescriptions: Continue lisinopriL [Zestril] 10 mg PO HS Citalopram Hydrobromide [Citalopram HBr] 40 mg PO HS ARIPiprazole [Abilify] 5 mg PO HS Warfarin [Coumadin] 7.5 mg PO Q48H Warfarin [Coumadin] 10 mg PO Q48H Discharge Medication List Citalopram Hydrobromide [Citalopram HBr] 40 mg PO HS 11/20/17 [History] lisinopriL [Zestril] 10 mg PO HS 11/20/17 [History] ARIPiprazole [Abilify] 5 mg PO HS 10/04/20 [History] Warfarin [Coumadin] 10 mg PO Q48H 10/04/20 [History] Warfarin [Coumadin] 7.5 mg PO Q48H 10/20/20 [History] Follow [place] [facility]ment([facility] [facility] [place] Patient Instructions/Handouts: *Surgery [facility] - (Anesthesia) Endoscopy Discharge Instructions, Diverticulosis (DC), Colorectal Polyps (DC), Diverticulosis Diet (GEN), Colonoscopy (DC), Upper Endoscopy (DC) Activity/Diet/Wound Care/Special Instructions: Repeat colonoscopy 3 years, 2023. RESTART COUMADIN Friday10/25/2020 Discharge Disposition: HOME SELF-CARE
== END 2020-10-23 09:03 | disposition home or self-care (01) ==
LOC: ORWHC2ENDO 07:08
PROVIDERS: ATTEND Surgery Plastic and Reconstructive Surgery
DX: K29.30 Chronic superficial gastritis without bleeding (principal); K21.9 Gastro-esophageal reflux disease without esophagitis; Z12.11 Encounter for screening for malignant neoplasm of colon; D12.2 Benign neoplasm of ascending colon; K57.90 Diverticulosis of intestine, part unspecified, without perforation or abscess without bleeding; K64.0 First degree hemorrhoids; D17.5 Benign lipomatous neoplasm of intra-abdominal organs; I12.9 Hypertensive chronic kidney disease with stage 1 through stage 4 chronic kidney disease, or unspecified chronic kidney disease; N18.2 Chronic kidney disease, stage 2 (mild); M19.90 Unspecified osteoarthritis, unspecified site; D68.2 Hereditary deficiency of other clotting factors; G47.33 Obstructive sleep apnea (adult) (pediatric); E66.01 Morbid (severe) obesity due to excess calories; Z79.01 Long term (current) use of anticoagulants; Z79.899 Other long term (current) drug therapy; Z86.010 Personal history of colon polyps; Z86.711 Personal history of pulmonary embolism; Z99.89 Dependence on other enabling machines and devices; Z80.9 Family history of malignant neoplasm, unspecified; Z83.2 Family history of diseases of the blood and blood-forming organs and certain disorders involving the immune mechanism; Z88.2 Allergy status to sulfonamides; Z91.040 Latex allergy status; Z98.84 Bariatric surgery status
CPT/HCPCS: 45385; 43235; J2704

== ENCOUNTER → 2020-11-15 | Outpatient (CLI) | payer MEDICARE ==
[2020-11-15 14:52] VITALS: BP 138/87; PULSE 111; RESP 20; TEMP 98.5; BMI 64.5
--- NOTE | 2020-11-15 15:06 | P.PN ---
Subjective Progress Note Date: 11/15/20 DATE OF SERVICE: 11/15/20 CHIEF COMPLAINT: Status post sleeve gastrectomy HISTORY OF PRESENT ILLNESS: Chelsi Bhatia is a 70-year-old female who is status post sleeve gastrectomy, 03/09/18. She is 3 years out. She comes in with ineffective weight loss following her bariatric procedure and with a BMI still over 60. She comes in with new complaints of her bladder. She has recurrent urinary tract infections. She has a rectocele. She has bladder incontinence. She has lost 4 pounds. She had passed a kidney stone. She cannot clean herself after from urinating as he has trouble reaching. She has panniculitis. She comes in for management of her symptoms. At height of 5 feet 4 inches, her ideal body weight is 144 pounds. She was 390 pounds. Body mass index was 67.1. Today she comes in 376 pounds from 379 pounds, 1 month ago. She has lost 4 pounds pounds in 1 month. Lifetime weight loss, 14 pounds. Percent excess weight loss, 6%. PAST MEDICAL HISTORY: 1. Morbid obesity due to excess calories 2. Body mass index of 67.1, initial 3. Osteoarthritis of the knees. 4. Osteoarthritis of the hips. 5. Osteoarthritis of the lower back. 6. Depressive disorder 7. Hypertensive heart disease. 8. Hypothyroidism 9. Atrial fibrillation 10. Hypercoaguable state PAST SURGICAL HISTORY: 1. Upper endoscopy. 2. Sleeve gastrectomy 3. Colonoscopy HOME MEDICATIONS: Home Medications Medication Instructions Recorded Confirmed Citalopram Hydrobromide 40 mg PO HS 11/20/17 11/15/20 [Citalopram HBr] lisinopriL [Zestril] 10 mg PO HS 11/20/17 11/15/20 ARIPiprazole [Abilify] 5 mg PO HS 10/04/20 11/15/20 Warfarin [Coumadin] 10 mg PO Q48H 10/04/20 11/15/20 Warfarin [Coumadin] 7.5 mg PO Q48H 10/20/20 11/15/20 Previous Rx's Medication Instructions Recorded Nystatin 100,000 Unit/gm Powd 1 applic TOPICAL BID #60 powder 11/15/20 [Mycostatin Powder] ALLERGIES: Allergies Allergy/AdvReac Type Severity Reaction Status Date / Time latex Allergy Itching Verified 11/15/20 14:53 Sulfa (Sulfonamide Allergy Rash/Hives Verified 11/15/20 14:53 Antibiotics) SOCIAL HISTORY: No active tobacco use. History of alcohol use. FAMILY HISTORY: No family history of ulcerative colitis disease or Crohn's disease. Family history of morbid obesity. No lupus in the family. No reports of stomach or esophageal cancer. Family history of diabetes type 2. REVIEW OF ORGAN SYSTEMS: CONSTITUTIONAL: At height of 5 feet 4 inches, her ideal body weight is 144 pounds. Previous weight of 390 pounds. Body mass index is 67.1. She is 246 pounds overweight. HEENT: Denies any active troubles with vision or hearing. No troubles with swallowing. ENDOCRINE: No diabetes. Has hypothyroidism. CARDIOVASCULAR: No reports of palpitations or heart attacks or chest pain. Has hypertension. RESPIRATORY: Has daytime somnolence. No asthma. GI: Denies any bright red blood per rectum. No diarrhea or constipation. : Bladder urgency with leakage. Has rectocele. MUSCULOSKELETAL: Has lower back pain and joint pain. Has osteoarthritis of the knees. NEURO: No headaches. No seizure disorders. PSYCH: Has depression. No suicidal ideation. RHEUMATOLOGIC: No lupus. No rheumatoid arthritis. HEMATOLOGIC: Denies any abnormal bleeding or bruising. No personal history of DVTs. On blood thinner. SKIN: No rash. No skin cancer. PHYSICAL EXAM: VITAL SIGNS: Height 5 foot 4 inches, weight 376 pounds. BMI 64.6 Vital Signs Temp 98.5 F 11/15/20 14:39 Pulse 111 H 11/15/20 14:39 Resp 20 11/15/20 14:39 BP 138/87 11/15/20 14:39 Pulse Ox GENERAL: Well-developed in no acute distress. HEENT: No scleral icterus. Extraocular movements grossly intact. Hears conversational speech. No nasal drainage. NECK: Supple without lymphadenopathy. CHEST: Nonlabored respirations with equal bilateral excursions. CARDIOVASCULAR: Tachycardic. ABDOMEN: Soft, nondistended. Nontender. MUSCULOSKELETAL: No clubbing, cyanosis. NEURO: No focal or lateralizing signs. Cranial nerves 2 through 12 grossly within normal limits. PSYCH: Appropriate affect. Alert and oriented to person, place and time. SKIN: Good skin turgor. Well perfused. LABS: Reviewed. PTH elevated. INR elevated 1.72. CrCL low EGD FINDINGS: No acute ulceration found along her sleeve. No corkscrewing sleeve gastrectomy. Squamocolumnar junction at 41 cm from the incisors. Diaphragmatic hiatus at 41 cm. Moderate large gastric reservoir with prior history of sleeve gastrectomy allowing easy retroflexion of the gastroscope to view the lower esophageal valve. LA grade A erosive esophagitis. No active duodenitis. Acute gastrointestinal bleeding COLON FINDINGS: Aronchick preparation quality scale 2 (1-5) Internal hemorrhoids, grade 1 No external hemorrhoids No arteriovenous malformations. Sigmoid diverticulosis with pandiverticulosis Submucosal colonic lipoma, hepatic flexure, 1 cm Removal of 1 polyp: - Snare polypectomy and ascending colon, 5 mm tubulovillous adenoma polyp. No focal colitis. ASSESSMENT: 1. Morbid obesity due to excess calories 2. Body mass index of 67.1 to 64.6 3. Osteoarthritis of the knees. 4. Osteoarthritis of the hips. 5. Osteoarthritis of the lower back. 6. Depressive disorder 7. Hypertensive heart disease. 8. Hypothyroidism 9. Atrial fibrillation 10. Hypercoaguable state 11. Bladder urgency 12. Weight gain following bariatric procedure 13. Dietary surveillance and counseling 14. Colon polyps 15. Change in bowel habits. 16. Status post sleeve gastrectomy 17. Secondary hyperparathyroidism. 18. Diverticulosis 19. Colon polyps PLAN: 1. Repeat colonoscopy in 3 years. 2. She has been referred to urogynecologist for bladder leakage. 3. Referral to bariatric dietitian for weight management. Objective - Vital Signs Vital signs: Vital Signs Temp 98.5 F 11/15/20 14:39 Pulse 111 H 11/15/20 14:39 Resp 20 11/15/20 14:39 BP 138/87 11/15/20 14:39 Pulse Ox Intake & Output 11/14/20 11/15/20 11/15/20 18:59 06:59 18:59 Weight 170.732 kg
== END ==
LOC: BARWHC3 14:27
PROVIDERS: ATTEND Surgery Plastic and Reconstructive Surgery
DX: E66.01 Morbid (severe) obesity due to excess calories (principal); D68.59 Other primary thrombophilia; E03.9 Hypothyroidism, unspecified; F32.9 Major depressive disorder, single episode, unspecified; I11.9 Hypertensive heart disease without heart failure; I48.91 Unspecified atrial fibrillation; M16.0 Bilateral primary osteoarthritis of hip; M17.0 Bilateral primary osteoarthritis of knee; M79.3 Panniculitis, unspecified; N25.81 Secondary hyperparathyroidism of renal origin; N81.6 Rectocele; R32 Unspecified urinary incontinence; M47.9 Spondylosis, unspecified; R39.15 Urgency of urination; K63.5 Polyp of colon; K57.90 Diverticulosis of intestine, part unspecified, without perforation or abscess without bleeding; Z71.3 Dietary counseling and surveillance; Z98.84 Bariatric surgery status; Z68.44 Body mass index [BMI] 60.0-69.9, adult; Z79.01 Long term (current) use of anticoagulants; Z79.899 Other long term (current) drug therapy; Z88.2 Allergy status to sulfonamides; Z91.040 Latex allergy status
CPT/HCPCS: 99211

== ENCOUNTER → 2021-03-01 | Outpatient (CLI) | payer MEDICARE ==
--- NOTE | 2021-03-01 19:25 | BD ---
EXAMINATION TYPE: Axial Bone Density DATE OF EXAM: 03/01/2021 COMPARISON: NONE CLINICAL HISTORY: Postmenopausal screening Height: 5 FT 3 1/4 IN Weight: 378 FRAX RISK QUESTIONS: Alcohol (3 or more units per day): NO Family History (Parent hip fracture): NO Glucocorticoids (More than 3mos): NO (Ex: prednisone, prednisolone, methylprednisolone, dexamethasone, and hydrocortisone). History of Fracture in Adulthood: YES Secondary Osteoporosis: 1. Type 1 Diabetes: NO 2. Hyperthyroidism: NO 3. Menopause before 45: AROUND 47 4. Malnutrition: NO 5. Chronic liver disease: FATTY Rheumatoid Arthritis: NO Current Tobacco Use: NO RISK FACTORS HISTORY OF: Surgery to Spine/Hip(right/left)/Wrist (right/left): LEFT When: AROUND 1986 Family History of Osteoporosis: YES Active: NO Diet low in dairy products/other sources of calcium: NO Postmenopausal woman: AROUND AGE 47 Take estrogen and/or progesterone medications: NO Lost more than 2 inches in height since high school: YES Poor Health: FAIR MEDICATIONS: Additional Medications: LISINOPRIL, URINARY INCONTINENCE MEDS, ABILIFY Additional History: EXAM MEASUREMENTS: Bone mineral densitometry was performed using the [employer] System. Bone mineral density as measured about the Lumbar spine is: ----- L1-L4(G/cm2): 0.969 T Score Values are as follows: ----- L2: -1.0 ----- L3: -1.2 ----- L4: -2.6 ----- L1-L4: -1.8 BASELINE Bone mineral density about the R hip (g/cm2): 0.618 Bone mineral density about the L hip (g/cm2): 0.606 T Score values are as follows: -----R Neck: -3.0 -----L Neck: -3.1 -----R Total: -3.0 -----L Total: -3.0 BASELINE IMPRESSION: Osteoporosis (T Score less than -2.5). There is increased fracture risk and therapy is usually indicated based on age. Re-Screen 1-2 years. NOTE: T-SCORE=SD OF THE YOUNG ADULT MEAN.
== END | disposition home or self-care (01) ==
LOC: RADBDWWP 12:37
PROVIDERS: ATTEND Family Medicine
DX: Z13.820 Encounter for screening for osteoporosis (principal); M81.0 Age-related osteoporosis without current pathological fracture; Z78.0 Asymptomatic menopausal state
CPT/HCPCS: 77080

== ENCOUNTER → 2021-08-09 | Outpatient (CLI) | payer MEDICARE ==
--- NOTE | 2021-08-09 15:34 | CONS ---
CONSULTATION DATE OF SERVICE: 08/09/2021 This 70-year-old lady has been evaluated in Sleep Center for obstructive sleep apnea- hypopnea syndrome. HISTORY OF PRESENT ILLNESS/SLEEP-WAKE EVALUATION: Patient's usual sleep schedule is from 1 or 2 a.m. until 5 a.m., then the patient wakes up for 2 hours and then she sleeps again until about 11 a.m. She denied any significant problems with falling asleep; at the same time, she sleeps in the chair. Patient has history of obstructive sleep apnea diagnosed more than 10 [place] She was treated with CPAP for about 8 years, and about one year ago she stopped using her CPAP. She wakes up from sleep 4 to 5 times, has urinary incontinence. In the morning she wakes up tired, falling asleep during the day. [place] Sleepiness Scale is in extremely high range at 20. She takes 2 or 3 naps a day. She denied history of hypnagogic hallucination, but positive history of vivid dreams during naps. No history of cataplexy. 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 PAST SURGICAL HISTORY: Cholecystectomy, gastric sleeve. MEDICATIONS: 1. Coreg 3.125 mg twice a day. 2. Lisinopril 10 mg once a day. 3. Duloxetine 60 mg twice a day. 4. extended-release 4 mg once a day. 5. Warfarin 5 mg. FAMILY HISTORY: Positive for cancer, pulmonary embolism, coagulation blood disorder. REVIEW OF SYSTEMS: Multiple awakenings from sleep, urinary incontinence. No fevers. No double vision. No recent chest pain. No shortness of breath. No abdominal pain. No bleeding episodes. No blood in the urine. No seizure episodes. PHYSICAL EXAMINATION: GENERAL: Pleasant lady without distress. VITAL SIGNS: BP 141/85, HR 98, RR 18, height 5 feet 3-3/4 inches, weight 389.2 pounds, body mass index 67.4, temperature 97.4, oxygen saturation at room air 92%. HEENT: PERRLA, EOMI, evaluation of oropharynx showed tongue protrudes midline. Extremely low position of soft palate; Mallampati IV. NECK: Supple, no JVD. Thyroid is not palpable. Neck is wide, 17-1/2 inches in circumference. LUNGS: Clear to percussion and to auscultation. Good air exchange. No wheezing or rhonchi. HEART: S1, S2 regular. No murmurs, gallops, or rubs. ABDOMEN: Obese. EXTREMITIES: One plus ankle edema. API PRODUCT MANAGER: Awake, alert, and oriented X3. Cranial nerves 2 to 7 intact. There is no fasciculation or atrophy. noted. No focal deficits observed. IMPRESSION: 1. History of obstructive sleep apnea diagnosed more than 10 years ago. The patient stopped using CPAP about one year ago. She has multiple awakenings from sleep, 5 times, urinary incontinence, extremely low position of soft palate, Mallampati IV, wide neck, 17-1/2 inches in circumference; obstructive sleep apnea-hypopnea syndrome. 2. Morbid obesity; body mass index 67.4. 3. Urinary incontinence. 4. Hypertension. 5. Arthritis. 6. Sinus problems. 7. History of pulmonary embolism. 8. 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 9. Status post cholecystectomy. 10.Status post gastric sleeve. PLAN: 1. Polysomnography for evaluation of patient's breathing during sleep. 2. CPAP/BiPAP titration if sleep study confirms obstructive sleep apnea-hypopnea syndrome. 3. Preferable position during sleep on the side. 4. No driving if patient feels any sleepiness. 5. I will see patient for follow up visit to explain results of testing and following plan. Thank you very much for referring this patient for consultation. Sincerely, Gunner Patterson MD, PhD, FAASM Diplomat of [employer] Sleep Medicine Board of [place] [employer] Carbon Cleaner of [facility] [place] MMODL / IJN: [id number] /
== END ==
LOC: SLEEP 14:14
PROVIDERS: ATTEND Internal Medicine
DX: G47.33 Obstructive sleep apnea (adult) (pediatric) (principal); E66.01 Morbid (severe) obesity due to excess calories; I10 Essential (primary) hypertension; R32 Unspecified urinary incontinence; M19.90 Unspecified osteoarthritis, unspecified site; J34.9 Unspecified disorder of nose and nasal sinuses; Z86.711 Personal history of pulmonary embolism; Z68.44 Body mass index [BMI] 60.0-69.9, adult; Z99.89 Dependence on other enabling machines and devices; Z90.49 Acquired absence of other specified parts of digestive tract; Z98.84 Bariatric surgery status; Z86.2 Personal history of diseases of the blood and blood-forming organs and certain disorders involving the immune mechanism
CPT/HCPCS: 99211

== ENCOUNTER → 2022-07-11 | Outpatient (CLI) | payer MEDICARE ==
--- NOTE | 2022-07-11 16:10 | P.PN ---
Subjective DATE: 07/11/2022 FOLLOW UP VISIT. Patient with obstructive sleep apnea hypopnea syndrome return to sleep center for follow-up visit. Recently patient had sleep study which documented obstructive sleep apnea hypopnea syndrome. Patient was initiated on PAP therapy and today is first visit after treatment was started. I explained results of sleep studies to patient in details. Patient was able to use PAP equipment most of the nights for the whole night. The patient does not have significant problems with the mask. Patient feels that it's not enough pressure in the mask while starting to use his CPAP equipment. Most of the night she sleeps on the chair with CPAP. [place] sleepiness scale is 8, which is close to the border. I checked information from PAP unit. PAP unit pressure 6-14, average 8.4 cm H2O. Usage is 97% and 87 % for more then 4 hours, average 7 hours per night. Leak is 0.3 l/m, which is in great range. Apnea Hypopnea Index is 0.4, which is normal. MEDICATIONS:1. Coreg 2. Lisinopril 10 mg once a day 3. Duloxetine 60 mg twice a day 4. Warfarin During physical exam: GENERAL: A pleasant patient without any distress. VITAL SIGNS: BP 160/77, HR 84, RR 18, weight 390.2, temperature 98.6, oxygen s aturation at room air 95%. HEENT: PERRLA, EOMI.low position of soft palate, Mallapati 4 . NECK: Supple. No JVD. LUNGS: Clear to percussion and to auscultation. Good air exchange. No wheezing or rhonchi. HEART: S1, S2 regular. ABDOMEN: Soft and nontender. Obese EXTREMITIES: No clubbing or cyanosis. TUBE REPAIRER: Awake, alert, and oriented x3. No focal deficit. Impressions: 1. Obstructive sleep apnea-hypopnea syndrome. Patient demonstrated great compliance with treatment, benefiting from treatment. 2. Obesity, body mass index around 67. 3. Hypertension. 4. History of urinary incontinence. 5. History of pulmonary embolism. 6. History of coagulation disorder, factor II deficiency. 7. Status post gastric sleeve. 8. Arthritis. 9. Sinuses problems.. 10. History of pulmonary embolism. 11. History of DVT I changed ramp starting pressure to 7 cm of water. Patient tried that pressure in our office and feel comfortable. I teach patient how to adjust humidity. We adjusted level of humidity up to 6. Plan: 1. Continue using PAP equipment every night for the whole night. I changed parameters in CPAP. I increase the range of the pressure to 7-18 and a ramp will start from the pressure 7 centimeters of water. 2. Patient will try to sleep in bed with CPAP. 3. PAP unit should stay lower then position of the head. 4. Advised patient to remove all remaining water from humidifier canister daily and make it dry after each usage. Refill canister with fresh distilled water before each usage. 5. Sleep hygiene with regular time in bed for at least 8 hours. 6. Precautions related to driving. No driving if feel any sleepiness. 7. I will maintain prescription for PAP supplies including mask, tube, filters. 8. Follow up visit in 6 months or earlier if patient has any problems. 9. Losing weight. Thank you very much for allowing me to participate in the management of your patient. Gunner Patterson MD, PhD, FAASM. Diplomat of [place] [employer], Sleep Medicine Board by [place] [employer] Prosecuting Attorney of [facility] [place]
== END ==
LOC: SLEEP 14:47
PROVIDERS: ATTEND Internal Medicine
DX: G47.33 Obstructive sleep apnea (adult) (pediatric) (principal); E66.9 Obesity, unspecified; Z68.44 Body mass index [BMI] 60.0-69.9, adult; I10 Essential (primary) hypertension; Z86.711 Personal history of pulmonary embolism; Z86.718 Personal history of other venous thrombosis and embolism; Z98.84 Bariatric surgery status; Z87.448 Personal history of other diseases of urinary system; Z86.2 Personal history of diseases of the blood and blood-forming organs and certain disorders involving the immune mechanism; Z79.899 Other long term (current) drug therapy; J34.9 Unspecified disorder of nose and nasal sinuses; M19.90 Unspecified osteoarthritis, unspecified site; Z79.01 Long term (current) use of anticoagulants; Z88.2 Allergy status to sulfonamides; Z91.040 Latex allergy status
CPT/HCPCS: 99212

== ENCOUNTER → 2023-01-22 | Outpatient (CLI) | payer MEDICARE ==
--- NOTE | 2023-01-22 17:21 | P.PN ---
Subjective DATE: 01/22/2023 FOLLOW UP VISIT. Patient with obstructive sleep apnea hypopnea syndrome return to sleep center for follow-up visit. Information from previous visit have been reviewed. Patient is using PAP equipment every night for the whole night, getting PAP supplies in time. The patient does not have significant problems with the mask, PAP unit and humidification. [place] sleepiness scale is increased to 16. I checked information from PAP unit. PAP unit pressure is 7-18, average 8.1 cm H2O. Usage is 100 % for more then 4 hours, average 5.8 hours per night. Leak is 3.8 l/m, which is in great range. Apnea Hypopnea Index is 0.4, which is normal, but most of the nights patient sleeps on the chair. MEDICATIONS:1. Metformin 2. Lisinopril 3. Coreg 4. Warfarin 5. Duloxetine During physical exam: GENERAL: A pleasant patient without any distress. VITAL SIGNS: BP 128/79, HR 85, RR 18, weight was not checked, because patient is on wheelchair, during previous visit 390 pounds, temperature 98.1, oxygen saturation at room air 94 % . HEENT: PERRLA, EOMI.low position of soft palate, Mallapati 4 . NECK: Supple. No JVD. LUNGS: Clear to percussion and to auscultation. Good air exchange. No wheezing or rhonchi. HEART: S1, S2 regular. ABDOMEN: Soft and nontender. Obese EXTREMITIES: No clubbing or cyanosis. IT ADMIN: Awake, alert, and oriented x3. No focal deficit. Impressions: 1. Obstructive sleep apnea-hypopnea syndrome. Patient demonstrated great compliance with treatment, benefiting from treatment. 2. Obesity. 3. Hypertension. 4. History of pulmonary embolism. 5. History of coagulation disorder. 6. Status post gastric sleeve. 7. History of DVT. Plan: 1. Continue using PAP equipment every night for the whole night. 2. To change air filter at least 1-2 times per month. 3. PAP unit should stay lower then position of the head. 4. Advised patient to remove all remaining water from humidifier canister daily and make it dry after each usage. Refill canister with fresh distilled water before each usage. 5. Sleep hygiene with regular time in bed for at least 8 hours. 6. Precautions related to driving. No driving if feel any sleepiness. 7. I will maintain prescription for PAP supplies including mask, tube, filters. 8. Watching and losing weight. 9. Follow up visit in 6 months or earlier if patient has any problems. Thank you very much for allowing me to participate in the management of your patient. Gunner Patterson MD, PhD, FAASM. Diplomat of [place] [employer], Sleep Medicine Board by [place] [employer] Spanish Interpreter/Translator of [facility] [place]
== END ==
LOC: 3 N SLEEP 15:41
PROVIDERS: ATTEND Internal Medicine
DX: G47.33 Obstructive sleep apnea (adult) (pediatric) (principal); E66.9 Obesity, unspecified; I10 Essential (primary) hypertension; D68.9 Coagulation defect, unspecified; Z86.718 Personal history of other venous thrombosis and embolism; Z86.711 Personal history of pulmonary embolism; Z98.84 Bariatric surgery status; Z99.89 Dependence on other enabling machines and devices; Z79.899 Other long term (current) drug therapy; Z79.01 Long term (current) use of anticoagulants; Z91.040 Latex allergy status; Z88.2 Allergy status to sulfonamides
CPT/HCPCS: 99212

== ENCOUNTER 2023-08-22 12:30 | Day surgery (SDC) | payer MEDICARE ==
[2023-08-20 13:14] VITALS: BMI 62.4
[2023-08-22] MEDS: LACTATED RINGERS 1,000 ML IV SCH (14:07)
[2023-08-22 14:20] LABS: Glucose,Whole Blood 116 mg/dL (70-110)
[2023-08-22] MEDS ORDERED: MIDAZOLAM 2 MG/2 ML VIAL ONE (14:40)
[2023-08-22] MEDS ORDERED: PROPOFOL 10 MG/ML 20 ML VIAL IV ONE (14:40)
[2023-08-22] MEDS ORDERED: LIDOCAINE 1% INJ 10MG/ML (20 ML MDV) ONE (14:40)
[2023-08-22] MEDS ORDERED: KETAMINE HCL IN 0.9 % NACL 50 MG/5 ML SYRINGE ONE (14:40)
[2023-08-22 14:44] VITALS: TEMP 97.6
--- NOTE | 2023-08-22 14:51 | P.PCN ---
Date of Procedure: 08/22/23 Procedure(s) Performed: BRIEF HISTORY: Patient is a 73-year-old, pleasant, female scheduled for an upper endoscopy as a part of evaluation of atypical chest pain f and epigastric pain or the last few months duration.. PROCEDURE PERFORMED: Esophagogastroduodenoscopy with biopsy PREOPERATIVE DIAGNOSIS: Atypical chest pain and epigastric pain of 3 months duration. IV sedation per anesthesia. PROCEDURE: After informed consent was obtained, the patient was brought into the endoscopy unit. IV sedation was administered by Anesthesia under continuous monitoring. Initially the Olympus GIF-140 video endoscope was inserted into the mouth. Esophagus intubated without any difficulty. It was gradually advanced into the stomach and duodenum and carefully examined. The bulb and the second part of the duodenum appeared normal. The scope at this time was withdrawn to the stomach, adequately insufflated with air, and upon careful examination, mucosa of the antrum had mild gastritis and biopsies were done from this area. Mucosa of the, body, cardia and the fundus appeared normal. The scope was then withdrawn into the esophagus. The GE junction was located at 39 cm from the incisors. The esophagus appeared normal. There were no erosions or ulcerations seen and the patient tolerated the procedure well. IMPRESSION: 1. Mild antral gastritis. 2. No evidence of esophagitis or hiatal hernia. RECOMMENDATIONS: The findings of this examination were discussed with the patient as well as his family. She was advised to follow with the biopsy results.. If she has recurrent symptoms she was advised to use [id number] Pepcid as needed.
[2023-08-22 15:58] VITALS: BP 118/70; PULSE 91; RESP 18
== END 2023-08-22 15:43 | disposition home or self-care (01) ==
LOC: ORWHC2ENDO 12:30
PROVIDERS: ATTEND Internal Medicine Gastroenterology
DX: K29.50 Unspecified chronic gastritis without bleeding (principal); K31.A0 Gastric intestinal metaplasia, unspecified; I10 Essential (primary) hypertension; G47.33 Obstructive sleep apnea (adult) (pediatric); E11.9 Type 2 diabetes mellitus without complications; E78.5 Hyperlipidemia, unspecified; N28.9 Disorder of kidney and ureter, unspecified; K76.0 Fatty (change of) liver, not elsewhere classified; E66.01 Morbid (severe) obesity due to excess calories; Z86.711 Personal history of pulmonary embolism; Z79.01 Long term (current) use of anticoagulants; Z79.84 Long term (current) use of oral hypoglycemic drugs; Z79.899 Other long term (current) drug therapy; Z98.890 Other specified postprocedural states; Z98.84 Bariatric surgery status; Z90.49 Acquired absence of other specified parts of digestive tract; Z68.44 Body mass index [BMI] 60.0-69.9, adult
CPT/HCPCS: 88305; 43239; J2250; J2001; J2704